=== PATIENT | male | born 1955 | race Caucasian/White ===

== ENCOUNTER 2018-08-22 23:35 | Emergency (ER) | payer OTHER, SELFPAY ==
[2018-08-22 23:38] VITALS: PULSE 82; RESP 20; TEMP 36.5; O2SAT 96
--- NOTE | 2018-08-23 00:03 | W.ED.GENAD ---
Discharge Plan Disposition Patient Disposition: HOME Condition: Good Discharge Details Chief Complaint: Laceration Clinical Impression: Laceration of left thumb Primary Care Provider: Charlie Jorgensen ED Provider: Maxx Tony [place] Meds and New Rx's Prescriptions: New cephalexin 500 mg capsule 500 mg PO QID Qty: 12 RF: 0 Discharge Instructions Instructions: Laceration (ED) Additional Instructions: Leave the dressing and the aluminum splint in place until seen by orthopedics on Saturday. Use acetaminophen and ibuprofen for pain. Keep hand elevated. Take antibiotic as prescribed. Return to ED for worsening pain, swelling, redness, fever. Referrals: Asad Morris MD [ [facility] STAFF PHYSICIAN] - Medical Decision Making Patient with extensive laceration of the distal thumb. Not a true amputation or partial amputation. Tendon appears to be intact. Sensation is decreased distal but is not absent. Tetanus is up-to-date. He is given Keflex. X-ray of the left thumb will be obtained. Digital block was performed prior to x-ray. Will soak the wound and irrigate out before closing. X-ray shows that the distal phalanx is crushed with multiple fractures. The base of the distal phalanx in the IP joint is intact. Case discussed with Dr. Morris on-call for orthopedics. He recommends against removing the nail and suggests closing the skin only. He will see the patient on Saturday and follow-up. Digital block worked well. Patient soaked the wound for some time after x-ray. It was then irrigated with copious amounts of saline. Skin laceration was closed with 4-0 nylon sutures. Cuticle was well approximated. Nail was left in place. Nailbed was not repaired. Xeroform dressing applied. Aluminum splint applied for protection. Patient instructed to keep hand elevated. He is not to remove the splint or dressing. He may use ibuprofen or acetaminophen for pain. Antibiotic as directed. Follow-up with Dr. Morris on Saturday. Return to ED for fever, increasing pain, swelling, redness. HPI General Mode of arrival: ambulatory. Date/Time Provider Initiated Documentation: 08/22/18 23:48. Limitations to Documentation: no limitations. Information obtained by: patient. HPI Narrative: Patient presents to ED with left thumb injury/laceration. Patient was filling his boiler with wood. He went to throw the wood in and slipped and jammed his thumb against a boiler plate. Sustained injury to his left thumb. When he took his glove off he noticed a large laceration and bleeding. He has some tingling to the tip of the thumb beyond the injury. He comes in for evaluation. Tetanus is up-to-date. Related Data Home Medications Medication Instructions Recorded Confirmed cephalexin 500 mg PO QID #12 cap 08/23/18 Previous Rx's Medication Instructions Recorded cephalexin 500 mg PO QID #12 cap 08/23/18 Allergies Allergy/AdvReac Type Severity Reaction Status Date / Time No Known Allergies Allergy Unverified 08/22/18 23:43 General Stated Complaint: Laceration JAVIER: 3 Review of Systems Musculoskeletal Reports tingling and Reports other (Left thumb injury) Integumentary/Breasts Reports wounds Neurologic Reports tingling PFSH Kidney stones (Chronic) Total knee replacement status (Inactive) Medical History Kidney stones (Chronic) Social History Smoking/Tobacco Use Status: Never Surgical History Total knee replacement status (Inactive) Social History Smoking/Tobacco Use Status: Never Exam Const General: cooperative, comfortable and no acute distress Orientation: alert and oriented x3 Skin Trauma: laceration (Left thumb involving the nailbed extending down towards the IP joint but not past it. Approximately 1.5 cm.) Neuro General: alert, oriented x3 and no focal motor deficits Extrem Left upper extremity: hand Details: laceration and other (Extensor tendons intact. Flexor tendon appears to be intact with the thumb though he has pain trying to flex against resistance. Decreased sensation distal to the laceration with some duskiness of the skin.) Course Vital Signs Temperature 97.7 F 08/22/18 23:38 Pulse 82 08/22/18 23:38 Respiratory Rate 20 08/22/18 23:38 Pulse Oximetry 96 08/22/18 23:38 Temperature 97.7 F 08/22/18 23:38 Temperature Source Temporal Artery Scan 08/22/18 23:38 Pulse 82 08/22/18 23:38 Respiratory Rate 20 08/22/18 23:38 Respiratory Effort Non-Labored 08/22/18 23:38 Blood Pressure Position Sitting 08/22/18 23:38 Pulse Oximetry 96 08/22/18 23:38 Oxygen Delivery Method Room Air 08/22/18 23:38 Oxygen Flow Rate 0 08/22/18 23:38 Procedures Laceration Laceration 1: Site: hand (thumb) Side (If applicable): left Size (cm): 1.5 Description: linear Depth: simple, single layer Pre-repair: irrigated extensively Skin layer closed with: nylon Size (cm): 4-0 Number of sutures: 6 Technique: simple, interrupted Nerve Block Nerve Block 1: Time out performed: Yes Local Anesthetic: Bupivicaine 0.5% Amount of anesthesia used (mL): 4 Side: left Nerve Blocks: digital Procedure Successful: Yes Patient Tolerated Procedure: well Complications: none
--- NOTE | 2018-08-23 00:10 | DI.RAD_ITS ---
SYMPTOM/DIAGNOSIS: TRAUMA LEFT THUMB: There is a comminuted fracture of the distal phalanx of the thumb which does not extend to the articular surface. There is no dislocation or evidence of foreign body. IMPRESSION: Open comminuted tuft fracture.
--- NOTE | 2018-08-23 00:14 | ED.GENADUL_ITS ---
Discharge Plan Disposition Patient Disposition: HOME Condition: Good Discharge Details Chief Complaint: Laceration Clinical Impression: Laceration of left thumb Primary Care Provider: Charlie Jorgensen ED Provider: Maxx Tony [place] Meds and New Rx's Prescriptions: New cephalexin 500 mg capsule 500 mg PO QID Qty: 12 RF: 0 Discharge Instructions Instructions: Laceration (ED) Additional Instructions: Leave the dressing and the aluminum splint in place until seen by orthopedics on Saturday. Use acetaminophen and ibuprofen for pain. Keep hand elevated. Take antibiotic as prescribed. Return to ED for worsening pain, swelling, redness, fever. Referrals: Asad Morris MD [ [facility] STAFF PHYSICIAN] - Medical Decision Making Patient with extensive laceration of the distal thumb. Not a true amputation or partial amputation. Tendon appears to be intact. Sensation is decreased distal but is not absent. Tetanus is up-to-date. He is given Keflex. X-ray of the left thumb will be obtained. Digital block was performed prior to x- ray. Will soak the wound and irrigate out before closing. X-ray shows that the distal phalanx is crushed with multiple fractures. The base of the distal phalanx in the IP joint is intact. Case discussed with Dr. Morris on-call for orthopedics. He recommends against removing the nail and suggests closing the skin only. He will see the patient on Saturday and follow- up. Digital block worked well. Patient soaked the wound for some time after x-ray. It was then irrigated with copious amounts of saline. Skin laceration was closed with 4-0 nylon sutures. Cuticle was well approximated. Nail was left in place. Nailbed was not repaired. Xeroform dressing applied. Aluminum splint applied for protection. Patient instructed to keep hand elevated. He is not to remove the splint or dressing. He may use ibuprofen or acetaminophen for pain. Antibiotic as directed. Follow-up with Dr. Morris on Saturday. Return to ED for fever, increasing pain, swelling, redness. HPI General Mode of arrival: ambulatory . Date/Time Provider Initiated Documentation: 08/22/18 23:48 . Limitations to Documentation: no limitations . Information obtained by: patient . HPI Narrative: Patient presents to ED with left thumb injury/laceration. Patient was filling his boiler with wood. He went to throw the wood in and slipped and jammed his thumb against a boiler plate. Sustained injury to his left thumb. When he took his glove off he noticed a large laceration and bleeding. He has some tingling to the tip of the thumb beyond the injury. He comes in for evaluation. Tetanus is up-to-date. Related Data Home Medications Medication Instructions Recorded Confirmed cephalexin 500 mg PO QID #12 cap 08/23/18 Previous Rx's Medication Instructions Recorded cephalexin 500 mg PO QID #12 cap 08/23/18 Allergies Allergy/AdvReac Type Severity Reaction Status Date / Time No Known Allergies Allergy Unverified 08/22/18 23:43 General Stated Complaint: Laceration JAVIER: 3 Review of Systems Musculoskeletal Reports tingling and Reports other (Left thumb injury) Integumentary/Breasts Reports wounds Neurologic Reports tingling PFSH Kidney stones (Chronic) Total knee replacement status (Inactive) Medical History Kidney stones (Chronic) Social History Smoking/Tobacco Use Status: Never Surgical History Total knee replacement status (Inactive) Social History Smoking/Tobacco Use Status: Never Exam Const General: cooperative, comfortable and no acute distress Orientation: alert and oriented x3 Skin Trauma: laceration (Left thumb involving the nailbed extending down towards the IP joint but not past it. Approximately 1.5 cm.) Neuro General: alert, oriented x3 and no focal motor deficits Extrem Left upper extremity: hand Details: laceration and other (Extensor tendons intact. Flexor tendon appears to be intact with the thumb though he has pain trying to flex against resistance. Decreased sensation distal to the laceration with some duskiness of the skin.) Course Vital Signs Temperature 97.7 F 08/22/18 23:38 Pulse 82 08/22/18 23:38 Respiratory Rate 20 08/22/18 23:38 Pulse Oximetry 96 08/22/18 23:38 Temperature 97.7 F 08/22/18 23:38 Temperature Source Temporal Artery Scan 08/22/18 23:38 Pulse 82 08/22/18 23:38 Respiratory Rate 20 08/22/18 23:38 Respiratory Effort Non-Labored 08/22/18 23:38 Blood Pressure Position Sitting 08/22/18 23:38 Pulse Oximetry 96 08/22/18 23:38 Oxygen Delivery Method Room Air 08/22/18 23:38 Oxygen Flow Rate 0 08/22/18 23:38 Procedures Laceration Laceration 1: Site: hand (thumb) Side (If applicable): left Size (cm): 1.5 Description: linear Depth: simple, single layer Pre-repair: irrigated extensively Skin layer closed with: nylon Size (cm): 4-0 Number of sutures: 6 Technique: simple, interrupted Nerve Block Nerve Block 1: Time out performed: Yes Local Anesthetic: Bupivicaine 0.5% Amount of anesthesia used (mL): 4 Side: left Nerve Blocks: digital Procedure Successful: Yes Patient Tolerated Procedure: well Complications: none
[2018-08-23] MEDS: Bupivacaine 0.5% Pres-Free 30 ML VIAL (00:45)
[2018-08-23] MEDS: Cephalexin 500 MG CAP PO ×2 (00:46→02:16)
--- NOTE | 2018-08-23 00:47 | DI.VRAD_ITS ---
EXAM: XR Left Finger(s), 2 or More Views EXAM DATE/TIME: 08/23/2018 12:11 AM CLINICAL HISTORY: 62 years old, male; Injury or trauma; Injury history: Patient fell and hit his thumb on the door hinge of an outdoor wood furnace; Initial encounter; Fracture, traumatic injury; Open fracture, severity classification not provided; Finger; Left; Injury date: 08/22/18 TECHNIQUE: XR Left finger minimum 2 views. COMPARISON: No relevant prior studies available. FINDINGS: Bones/joints: Interphalangeal and to a lesser degree metacarpophalangeal degenerative changes throughout the hand. Acute, comminuted open fracture of the first distal phalanx without significant displacement. Soft tissues: Distal first distal soft tissue defect. First digital and thenar swelling. No radiopaque foreign body is seen. IMPRESSION: Acute, comminuted open fracture of the first distal phalanx without significant displacement. Dictated and Authenticated by: Zuleyma Armas MD. Ordering:DONOVAN ADAMS MD
[2018-08-23 02:17] VITALS: BP 161/99; PULSE 82; RESP 20; TEMP 36.5; O2SAT 96
== END 2018-08-23 02:20 | disposition home or self-care (01) ==
LOC: ER 08-23 02:28
PROVIDERS: Emergency Provider Emergency Medicine; PCP Internal Medicine
DX: S67.02XA Crushing injury of left thumb, initial encounter (principal); S61.112A Laceration without foreign body of left thumb with damage to nail, initial encounter; S62.522A Displaced fracture of distal phalanx of left thumb, initial encounter for closed fracture; R20.1 Hypoesthesia of skin; W23.1XXA Caught, crushed, jammed, or pinched between stationary objects, initial encounter
CPT/HCPCS: 12001; 29125; 99283; 73140; 99281

== ENCOUNTER 2019-03-11 11:57 | Outpatient (REF) | payer OTHER, SELFPAY ==
[2019-03-13 11:09] LABS: Lyme Ab w Rflx to Lyme Confirm Negative
[2019-03-14 01:11] LABS: Anaplasma phagocytophilum Negative (Negative); B. miyamotoi PCR Negative (Negative); Babesia divergens/MO-1 Negative (Negative); Babesia duncani Negative (Negative); Babesia microti Negative (Negative); Ehrlichia chaffeensis Negative (Negative); Ehrlichia ewingii/canis Negative (Negative); Ehrlichia muris eauclairensis Negative (Negative)
== END 2019-03-11 12:17 ==
LOC: NCHCN 11:57
PROVIDERS: PCP Internal Medicine; Visit Provider Nurse Practitioner Family
DX: M25.50 Pain in unspecified joint (principal)
CPT/HCPCS: 87798; 86618

== ENCOUNTER 2020-06-14 10:11 | Outpatient (REF) | payer BC, SELFPAY ==
[2020-06-14 20:53] LABS: Abs Immature Grans 0.02 10^3/uL (0.0-0.06); Absolute Basophil Count 0.05 10^3/uL (0.0-0.2); Absolute Eosinophil Count 0.07 10^3/uL (0.0-0.7); Absolute Lymphocyte Count 1.91 10^3/uL (1.2-3.4); Absolute Monocyte Count 0.44 10^3/uL (0.1-0.8); Basophils % 0.9; Eosinophils % 1.2; HCT 47.2 % (40.0-50.0); HGB 15.2 g/dL (13.5-17.5); Immature Grans % 0.3; MCH 28.4 pg (27.0-33.0); MCHC 32.2 % (32.0-36.0); MCV 88.1 fL (80-95); MPV 11.5 fL (8.0-11.0); Monocytes % 7.6; Nucleated RBC 0 %; Platelet Count 296 10^3/uL (130-400); RBC 5.36 10^6/uL (4.36-5.78); RDW 13.7 % (11.8-14.1); RDW-SD 43.9 fL; WBC 5.79 10^3/uL (4.4-10.8)
[2020-06-14 21:14] LABS: ALT 57 U/L (16-63); AST 19 U/L (15-37); Alkaline Phosphatase 102 U/L (46-116); Anion Gap 6.5 mmol/L (3-11); BUN 14 mg/dL (7-18); Bilirubin, Total 1.2 mg/dL (0.2-1.0); CO2 29.5 mmol/L (21.0-32.0); CREATININE 0.87 mg/dL (0.70-1.30); Calcium 8.8 mg/dL (8.5-10.1); Chloride 106 mmol/L (98-107); Glucose 107 mg/dL (74-106); Potassium 3.9 mmol/L (3.5-5.1); Sodium 142 mmol/L (136-145); Total Protein 7.2 g/dL (6.4-8.2)
[2020-06-15 17:58] LABS: PSA, Screening 3.1 ng/mL (0.0-4.5)
== END 2020-06-14 10:31 ==
LOC: NCHCN 10:11
PROVIDERS: PCP Internal Medicine; Visit Provider Internal Medicine
DX: R39.9 Unspecified symptoms and signs involving the genitourinary system (principal); Z12.5 Encounter for screening for malignant neoplasm of prostate; Z80.42 Family history of malignant neoplasm of prostate
CPT/HCPCS: 80053; 84153; 85025

== ENCOUNTER 2021-06-25 17:02 | Emergency (ER) | payer BC, SELFPAY ==
[2021-06-25] VITALS (37 sets, daily range): BP systolic 139–153; BP diastolic 84–135; PULSE 50–78; RESP 14–27; TEMP 37.3; O2SAT 94–98
--- NOTE | 2021-06-25 19:45 | DI.RAD_ITS ---
Exam(s) XR CHEST 2V PA LATERAL EXAM: XR CHEST 2V PA LATERAL CLINICAL HISTORY: L jaw pain TECHNIQUE: 2D digital imaging was performed. COMPARISON: CR CHEST 2 VIEWS PA,LAT from 03/28/2012 FINDINGS: The heart is not enlarged. The lungs are clear and well expanded. No pleural effusion seen. Mediastin al contours appear intact. IMPRESSION: Normal chest. RADIATION DOSE DELIVERED: Total DLP
--- NOTE | 2021-06-25 19:45 | RT.EKG_ITS ---
APPROVED REPORT Exam: Resting ECG Reason for Exam: L jaw pain Patient Location: E HR:59 bpm ECG Measurements Heart Rate 59 AXIS AZ 170 P 16 QRSd 108 QRS 10 QT 404 T 0 QTc 401 Conclusion Sinus bradycardia...rate< 60 PHysician: no stemi. inverted V1 and Lead III and AVF
--- NOTE | 2021-06-25 19:52 | ED.GENADUL_ITS ---
Discharge Plan Disposition Patient Disposition: HOME Condition: Stable Discharge Details Clinical Impression: Jaw pain Primary Care Provider: Charlie Jorgensen ED Provider: Ricardo Connolly Home Meds and New Rx's Prescriptions: No Action No Known Home Meds RF: 0 Discharge Instructions Additional Instructions: You have been observed in the ER for a cardiac rule out for over 6 hours and has been asymptomatic the entire time. Laboratory values are unremarkable for any obvious emergent process. Is unclear exactly where your symptoms are coming from, as we discussed this could be an atypical chest pain equivalent, neurologic in nature, dental, etc. I strongly recommend that you watch for new or worsening symptoms and return immediately to the ER. Otherwise I would like you to contact your primary care provider tomorrow to discuss your symptoms, ER visit, need for outpatient follow-up for further investigation of your symptoms. Continue taking [id number] medications as directed for symptomatic control. Medical Decision Making This is a 65-year-old gentleman, no significant past medical history, presenting to the ER for intermittent left-sided jaw pain that began yesterday, was fairly consistent overnight, and intermittent 4 times today. Patient took Tylenol p.m. prior to arrival it is asymptomatic. Denies any headache, visual changes, pain down his neck, chest pain, shortness of breath, etc. While this very well could be dental in nature, infectious process, TMJ, neuralgia or neuritis, less likely arteritis, ophthalmologic in nature, my concern is that this could be a atypical chest pain presentation. I did speak with the patient's on the phone and she shares the same concerns. Patient is agreeable to a chest pain work-up. Will initiate chest pain work-up and give full dose aspirin Initial labs are unremarkable for obvious emergent process. Patient remains asymptomatic. He is agreeable to awaiting a delta troponin. Delta troponin is unremarkable. Patient observed in the ER for over 6 hours and has remained asymptomatic the entire time. We did discuss the importance of return to the ER for new or worsening symptoms, otherwise contacting his primary care provider tomorrow to discuss outpatient reevaluation. He very well may develop new symptoms which may help figure out the etiology of his discomfort but he may need further work-up such as stress test, echocardiogram, referral to neurology, dentist, ophthalmology, etc. Patient is agreeable to this plan and has no additional questions or concerns. Strict discharge and return precautions provided This documentation was generated using [employer]iv[employer] system, please disregard any oddities of phrase or misspellings. Medical Records Medical records reviewed: Yes I reviewed the patient's medical records. Imaging Data Radiologic Study: Attestation: I personally reviewed and interpreted this imaging study as follows: Imaging: X-Ray Radiologist's impression: PROCEDURE INFORMATION: Exam: XR Chest Exam date and time: 06/25/2021 7:51 PM Age: 65 years old Clinical indication: Other: L jaw pain TECHNIQUE: Imaging protocol: XR of the chest. Views: 2 views. COMPARISON: CT PELVIC/LOWER ABD WITHOUT CONT 06/28/2014 8:25 AM FINDINGS: Lungs: Unremarkable. No consolidation. Pleural spaces: Unremarkable. No pleural effusion. No pneumothorax. Heart/Mediastinum: Unremarkable. No cardiomegaly. Bones/joints: Degenerative changes noted in the spine and shoulders. IMPRESSION: No acute cardiopulmonary abnormality. Lab Data Lab results reviewed: Yes I reviewed the patient's lab results. Labs: Laboratory Tests Range/Units 06/25/21 06/25/21 06/25/21 20:06 20:06 20:08 WBC (4.4-10.8) 10^3/uL 6.21 RBC (4.36-5.78) 10^6/uL 5.03 Hgb (13.5-17.5) g/dL 13.8 Hct (40.0-50.0) % 43.1 MCV (80-95) fL 85.7 MCH (27.0-33.0) pg 27.4 MCHC (32.0-36.0) % 32.0 RDW (11.8-14.1) % 13.4 Plt Count (130-400) 10^3/uL 282 MPV (8.0-11.0) fL 10.6 Immature Gran % 0.3 Neutrophils % 52.2 Lymphocytes % 37.2 Monocytes % 8.2 Eosinophils % 1.3 Basophils % 0.8 Nucleated RBC % % 0 Absolute Neutrophils (1.2-6.7) 10^3/uL 3.24 Absolute Lymphocytes (1.2-3.4) 10^3/uL 2.31 Absolute Monocytes (0.1-0.8) 10^3/uL 0.51 Absolute Eosinophils (0.0-0.7) 10^3/uL 0.08 Absolute Basophils (0.0-0.2) 10^3/uL 0.05 Sodium (136-145) mmol/L 141 Potassium (3.5-5.1) mmol/L 3.9 Chloride (98-107) mmol/L 105 Carbon Dioxide (21.0-32.0) mmol/L 27.4 Anion Gap (3-11) mmol/L 8.6 BUN (7-18) mg/dL 17 Creatinine (0.70-1.30) mg/dL 0.7 Estimated GFR/1.73 m2 (mL/min/1.73m2) >= 60.00 Glucose (74-106) mg/dL 100 Calcium (8.5-10.1) mg/dL 9.0 Magnesium (1.8-2.4) mg/dL 2.1 Total Bilirubin (0.2-1.0) mg/dL 0.7 AST (15-37) U/L 20 ALT (16-63) U/L 48 Alkaline Phosphatase (46-116) U/L 97 Troponin I (<0.06) ng/mL < 0.05 Total Protein (6.4-8.2) g/dL 7.1 Albumin (3.4-5.0) g/dL 3.9 COVID-19 Source Nasal/Nares Range/Units 06/25/21 22:38 WBC (4.4-10.8) 10^3/uL RBC (4.36-5.78) 10^6/uL Hgb (13.5-17.5) g/dL Hct (40.0-50.0) % MCV (80-95) fL MCH (27.0-33.0) pg MCHC (32.0-36.0) % RDW (11.8-14.1) % Plt Count (130-400) 10^3/uL MPV (8.0-11.0) fL Immature Gran % Neutrophils % Lymphocytes % Monocytes % Eosinophils % Basophils % Nucleated RBC % % Absolute Neutrophils (1.2-6.7) 10^3/uL Absolute Lymphocytes (1.2-3.4) 10^3/uL Absolute Monocytes (0.1-0.8) 10^3/uL Absolute Eosinophils (0.0-0.7) 10^3/uL Absolute Basophils (0.0-0.2) 10^3/uL Sodium (136-145) mmol/L Potassium (3.5-5.1) mmol/L Chloride (98-107) mmol/L Carbon Dioxide (21.0-32.0) mmol/L Anion Gap (3-11) mmol/L BUN (7-18) mg/dL Creatinine (0.70-1.30) mg/dL Estimated GFR/1.73 m2 (mL/min/1.73m2) Glucose (74-106) mg/dL Calcium (8.5-10.1) mg/dL Magnesium (1.8-2.4) mg/dL Total Bilirubin (0.2-1.0) mg/dL AST (15-37) U/L ALT (16-63) U/L Alkaline Phosphatase (46-116) U/L Troponin I (<0.06) ng/mL < 0.05 Total Protein (6.4-8.2) g/dL Albumin (3.4-5.0) g/dL COVID-19 Source ECG Data Attestation: I personally reviewed and interpreted this ECG (s) as follows: Interpretation: Please see official report by Dr. Lee. Sinus bradycardia, ventricular rate of 59. No STEMI. Nonspecific T wave changes HPI General Mode of arrival: ambulatory . Date/Time Provider Initiated Documentation: 06/25/21 17:17 . Limitations to Documentation: no limitations . Information obtained by: patient . HPI Narrative: This is a 65-year-old gentleman, denies significant past medical history, presents to the ER this evening reporting left-sided jaw pain that came on suddenly yesterday evening, sharp in nature and intermittent. States then overnight it was more constant, sharp, his entire job but did radiate towards his nose, did not sleep well. Today it has been intermittent roughly 4 times, took [id number] Tylenol PM and has been asymptomatic ever since. Denies any other symptoms, recent illness or trauma. Denies headache, visual changes, neck pain, sore throat, dental pain, chest pain, shortness of breath, back abdominal pain, nausea, vomiting, numbness, tingling, weakness, change in bowel or bladder function. Patient states that she bites down very hard he may be able to reproduce his symptoms slightly. Related Data Home Medications Medication Instructions Recorded Confirmed Unknown [No Known Home Meds] 06/16/20 Allergies Allergy/AdvReac Type Severity Reaction Status Date / Time No Known Allergies Allergy Unverified 06/25/21 17:13 General Stated Complaint: DentalOral JAVIER: 4 Review of Systems Constitutional Constitutional: Denies fatigue, Denies fever(s), Denies headache(s) and Denies weakness Eyes Eyes: Denies change in vision and Denies eye pain ENT Ears, Nose, Mouth, and Throat: Denies headache(s) and Denies sore throat Cardiovascular Cardiovascular: Denies chest pain and Denies dyspnea Respiratory Respiratory: Denies cough and Denies dyspnea Gastrointestinal Gastrointestinal: Denies abdominal pain, Denies nausea and Denies vomiting Musculoskeletal Musculoskeletal: Denies back pain, Denies numbness and Denies tingling Integumentary/Breasts Skin/Breast: Denies rash Neurologic Neurologic: Denies headache(s), Denies numbness, Denies tingling and Denies weakness Endocrine Endocrine: Denies fatigue PFSH Medical History Kidney stones Surgical History Total knee replacement status Social History Smoking/Tobacco Use Status: Never Smoking risk assessment performed?: Yes Alcohol Intake: never Drug use: Never Do you feel safe at home: Yes Do you feel safe in your relationship?: Yes Exam Const General: cooperative, healthy appearing, comfortable and no acute distress Orientation: alert, awake and oriented x3 HENMT Head: normal to inspection, normocephalic and atraumatic Ears: external ears normal, TM's normal bilaterally and EAC's normal General nose exam: external nose normal Face and sinus: normal facial exam Mouth: oral mucosae normal and moist mucous membranes Teeth and gingiva: dentition normal Throat: posterior oropharynx normal Eyes General: appearance normal, both eyes and all related structures Alignment and Position: alignment normal Periorbital: periorbital findings normal Eyelids: eyelids normal Conjunctivae: conjunctivae normal Sclera: sclerae normal Cornea: corneas normal Pupils: PERRL EOM: EOM intact bilaterally Direct ophthalmoscopy: normal light reflex Neck Neck: normal visual inspection, full ROM, no meningeal signs, trachea midline, supple and nontender Resp Effort & Inspection: normal respiratory effort and able to speak in complete sentences Auscultation: clear to auscultation bilaterally Cardio Rate: regular rate Rhythm: regular rhythm GI Palpation: soft, not firm, no guarding, no pulsatile masses and nontender Back/Spine/Pelvis Back: No back tenderness Skin General skin exam: no rashes or lesions noted Neuro General: patient alert, patient awake, patient oriented x3, moves all extremities and no focal motor deficits Cranial Nerves: CN's II-XI intact bilaterally Cognition: normal cognition Speech: speech normal Motor: muscle tone normal throughout Sensory Exam: no sensory deficits noted Extrem General: normal to inspection, full ROM and capillary refill normal Psych Appearance: grossly normal Mental Status: mental status grossly normal Course Vital Signs Vital signs: Vital Signs Temperature 37.3 C 06/25/21 17:10 Pulse 78 06/25/21 17:10 Respiratory Rate 18 06/25/21 17:10 Blood Pressure 148/102 H 06/25/21 17:10 Pulse Oximetry 96 06/25/21 17:10 Temperature 37.3 C 06/25/21 17:10 Pulse 78 06/25/21 17:10 Respiratory Rate 18 06/25/21 17:10 Blood Pressure 148/102 H 06/25/21 17:10 Blood Pressure Position Sitting 06/25/21 17:10 Pulse Oximetry 96 06/25/21 17:10 Oxygen Delivery Method Room Air 06/25/21 17:10 Oxygen Flow Rate 0 06/25/21 17:10 Pain Level 9 06/25/21 17:10
[2021-06-25 20:14] LABS: Source Nasal/Nares
[2021-06-25 20:15] LABS: Abs Immature Grans 0.02 10^3/uL (0.0-0.06); Absolute Basophil Count 0.05 10^3/uL (0.0-0.2); Absolute Eosinophil Count 0.08 10^3/uL (0.0-0.7); Absolute Lymphocyte Count 2.31 10^3/uL (1.2-3.4); Absolute Monocyte Count 0.51 10^3/uL (0.1-0.8); Absolute Neutrophil Count 3.24 10^3/uL (1.2-6.7); Basophils % 0.8; Eosinophils % 1.3; HCT 43.1 % (40.0-50.0); HGB 13.8 g/dL (13.5-17.5); Immature Grans % 0.3; Lymphocytes % 37.2; MCH 27.4 pg (27.0-33.0); MCV 85.7 fL (80-95); MPV 10.6 fL (8.0-11.0); Monocytes % 8.2; Neutrophils % 52.2; Nucleated RBC 0 %; Platelet Count 282 10^3/uL (130-400); RBC 5.03 10^6/uL (4.36-5.78); RDW 13.4 % (11.8-14.1); WBC 6.21 10^3/uL (4.4-10.8)
[2021-06-25] MEDS: Aspirin 81 MG CHEW 324 MG CH (20:25)
[2021-06-25 20:28] LABS: ALT 48 U/L (16-63); AST 20 U/L (15-37); Albumin 3.9 g/dL (3.4-5.0); Alkaline Phosphatase 97 U/L (46-116); Anion Gap 8.6 mmol/L (3-11); BUN 17 mg/dL (7-18); Bilirubin, Total 0.7 mg/dL (0.2-1.0); CO2 27.4 mmol/L (21.0-32.0); CREATININE 0.7 mg/dL (0.70-1.30); Chloride 105 mmol/L (98-107); Glucose 100 mg/dL (74-106); Magnesium 2.1 mg/dL (1.8-2.4); Potassium 3.9 mmol/L (3.5-5.1); Sodium 141 mmol/L (136-145); Total Protein 7.1 g/dL (6.4-8.2)
[2021-06-25 20:30] LABS: Troponin I < 0.05 ng/mL (<0.06)
--- NOTE | 2021-06-25 22:31 | DI.VRAD_ITS ---
PROCEDURE INFORMATION: Exam: XR Chest Exam date and time: 06/25/2021 7:51 PM Age: 65 years old Clinical indication: Other: L jaw pain TECHNIQUE: Imaging protocol: XR of the chest. Views: 2 views. COMPARISON: CT PELVIC/LOWER ABD WITHOUT CONT 06/28/2014 8:25 AM FINDINGS: Lungs: Unremarkable. No consolidation. Pleural spaces: Unremarkable. No pleural effusion. No pneumothorax. Heart/Mediastinum: Unremarkable. No cardiomegaly. Bones/joints: Degenerative changes noted in the spine and shoulders. IMPRESSION: No acute cardiopulmonary abnormality. Dictated and Authenticated by: Billy Silva MD. Ordering:AYLEEN Silva MD
[2021-06-25 22:59] LABS: Troponin I < 0.05 ng/mL (<0.06)
[2021-06-25 23:59] LABS: COVID-19 PCR Negative (Negative)
== END 2021-06-25 23:22 | disposition home or self-care (01) ==
PROVIDERS: Emergency Provider Physician Assistant; PCP Internal Medicine
DX: R68.84 Jaw pain (principal); R00.1 Bradycardia, unspecified; Z20.822 Contact with and (suspected) exposure to COVID-19; Z03.818 Encounter for observation for suspected exposure to other biological agents ruled out
CPT/HCPCS: 36415; 80053; 87635; 93005; 99285; 71046; 83735; 84484; 85025; 93010

== ENCOUNTER 2021-12-21 02:11 | Outpatient (CLI) | payer BC, SELFPAY ==
[2021-12-21 18:59] LABS: PSA, Screening 3.7 ng/mL (<=4.5)
== END 2021-12-21 02:12 | disposition home or self-care (01) ==
LOC: LBO 02:11
PROVIDERS: PCP Internal Medicine; Visit Provider Nurse Practitioner Gerontology
DX: Z12.5 Encounter for screening for malignant neoplasm of prostate (principal); Z80.42 Family history of malignant neoplasm of prostate
CPT/HCPCS: 36415; 84153

== ENCOUNTER → 2023-01-23 08:06 | Outpatient (BNVA) | payer MEDICARE, BC, SELFPAY | PROVIDERS: PCP Internal Medicine; Visit Provider Nurse Practitioner Gerontology | DX: N40.1 Benign prostatic hyperplasia with lower urinary tract symptoms (principal); N13.8 Other obstructive and reflux uropathy; Z80.42 Family history of malignant neoplasm of prostate | CPT/HCPCS: 36415; 51798; 99214 ==

== ENCOUNTER 2023-01-23 09:07 | Outpatient (REF) | payer MEDICARE, BC, SELFPAY | END 2023-01-23 09:08 | disposition home or self-care (01) | LOC: LBN 09:07 | PROVIDERS: PCP Internal Medicine; Visit Provider Nurse Practitioner Gerontology | DX: Z12.5 Encounter for screening for malignant neoplasm of prostate (principal); Z80.42 Family history of malignant neoplasm of prostate; N40.1 Benign prostatic hyperplasia with lower urinary tract symptoms | CPT/HCPCS: 84153 ==

== ENCOUNTER 2023-05-29 20:24 | Outpatient (REF) | payer BC, SELFPAY ==
[2023-05-29 16:18] LABS: ALT 32 U/L (16-63); AST 14 U/L (15-37); Albumin 3.6 g/dL (3.4-5.0); Alkaline Phosphatase 92 U/L (46-116); Anion Gap 4.8 mmol/L (3-11); BUN 17 mg/dL (7-18); Bilirubin, Total 0.7 mg/dL (0.2-1.0); CO2 29.2 mmol/L (21.0-32.0); CREATININE 0.9 mg/dL (0.70-1.30); Calcium 9.6 mg/dL (8.5-10.1); Chloride 106 mmol/L (98-107); Estimated GFR 94.19 (mL/min/1.73m2); Glucose 103 mg/dL (74-106); Potassium 4.2 mmol/L (3.5-5.1); Sodium 140 mmol/L (136-145); Total Protein 6.9 g/dL (6.4-8.2); Uric Acid 4.9 mg/dL (3.5-7.2)
[2023-05-29 16:20] LABS: Abs Immature Grans 0.02 10^3/uL (0.0-0.06); Absolute Basophil Count 0.05 10^3/uL (0.0-0.2); Absolute Lymphocyte Count 1.84 10^3/uL (1.2-3.4); Absolute Monocyte Count 0.54 10^3/uL (0.1-0.8); Absolute Neutrophil Count 3.97 10^3/uL (1.2-6.7); Basophils % 0.8; Eosinophils % 1.5; HGB 13.4 g/dL (13.5-17.5); Immature Grans % 0.3; Lymphocytes % 28.2; MCHC 32.7 % (32.0-36.0); MCV 86 fL (80-95); MPV 11.2 fL (8.0-11.0); Monocytes % 8.3; Neutrophils % 60.9; Platelet Count 331 10^3/uL (130-400); RBC 4.79 10^6/uL (4.36-5.78); RDW 13.7 % (11.8-14.1); RDW-SD 43.1 fL; WBC 6.52 10^3/uL (4.4-10.8)
[2023-05-29 16:30] LABS: Bilirubin Negative (Negative); Blood Trace-lysed (Negative); Clarity Clear (Clear); Glucose Negative (Negative); Ketones Negative (Negative); Leukocyte Esterase Trace (Negative); Nitrite Negative (Negative); Urobilinogen 0.2 mg/dL (Up to 0.2)
[2023-05-29 17:20] LABS: Bacteria Rare HPF (Negative); C & S Indicated? Yes; Casts Negative LPF (Negative); Crystals Negative HPF (Negative); Epithelial Cells Rare HPF (Negative); Mucus Trace (Negative)
[2023-05-29 23:02] LABS: PSA, Screening 4.2 ng/mL (<=4.5)
== END 2023-05-29 20:25 | disposition home or self-care (01) ==
LOC: NCHCN 20:24
PROVIDERS: PCP Internal Medicine; Visit Provider Family Medicine
DX: R10.32 Left lower quadrant pain (principal); N20.0 Calculus of kidney; Z12.5 Encounter for screening for malignant neoplasm of prostate; Z80.42 Family history of malignant neoplasm of prostate; R82.998 Other abnormal findings in urine
CPT/HCPCS: 80053; 84153; 81003; 81015; 84550; 85025; 87086

== ENCOUNTER → 2023-05-31 00:51 | Outpatient (CLI) | payer BC, SELFPAY ==
--- NOTE | 2023-05-31 10:35 | DI.CT_ITS ---
Exam(s) CT ABDOMEN PELVIS WO EXAM: CT ABDOMEN PELVIS WO CLINICAL HISTORY: LEFT FLANK PAIN R10.9 NEPHROLITHIASIS N20.0. TECHNIQUE: Imaging Protocol: Axial computed tomography images with coronal and sagittal reformatted images were created and reviewed. COMPARISON: CT RENAL COLIC WO CONTRAST from 05/21/2014 CT PELVIC/LOWER ABD WITHOUT CONT from 06/28/2014 FINDINGS: Lack of IV contrast limits evaluation of the abdominal organs. ABDOMEN: Lung Bases: Normal where visualized. Liver: There is fatty infiltration of the liver. There is a 4.1 x 4.2 cm mass in the left lobe of th e liver. Gallbladder and biliary tract: No radiodense calculus or biliary ductal dilation. Pancreas: There is a question of 1 cm hypodense lesion in the uncinate process of the pancreas. Spleen: Normal. Kidneys: Normal size, contour and axis.There is left nephrolithiasis. There is a 0.6 cm stone at the junction of the middle and distal thirds of the left ureter. There is a 0.6 cm stone at the left UV J. There is moderate hydronephrosis. No masses seen. Adrenal glands: No mass is seen. Lymph nodes: Within normal limits. Abdominal Aorta: Abdominal portion non-dilated. Atherosclerosis. PELVIS: Bladder:Symmetric distention, no gross wall thickening. Bowel: Diverticulosis is present. There is no evidence of bowel obstruction or bowel wall thickening . Appendix is unremarkable. Peritoneal cavity: No ascites, collection or mesenteric inflammatory response. No free air. Reproductive organs: There is an enlarged prostate gland. Bones: Within normal limits. Soft Tissues: There are bilateral fat containing inguinal hernias. There is a fat containing umbilic al hernia. IMPRESSION: 1. Two stones in the distal left ureter causing moderate hydronephrosis. 2. Left nephrolithiasis. 3. 4.1 x 4.2 cm mass in the left lobe of the liver. 4. Question of a 1 cm hypodense lesion in the uncinate process of the pancreas. 5. MRI of the abdomen without and with contrast is recommended for evaluation of the liver and pancre atic lesions. Unexpected findings RADIATION DOSE DELIVERED: 874.07mGy.cm Total DLP DATA REPOSITORY: All CT scans at this facility are submitted to the National Radiology Data Registry (NRDR) Dose Index Registry (DIR) with the [employer] (ACR). RADIATION OPTIMIZATION: All CT scans at this facility use at least one of these dose optimization te chniques: automated exposure control; mA and/or kV adjustment per patient size (includes targeted exa ms where dose is matched to clinical indication); or iterative reconstruction.
== END ==
PROVIDERS: PCP Internal Medicine; Visit Provider Family Medicine
DX: N13.30 Unspecified hydronephrosis (principal); N20.0 Calculus of kidney; K76.89 Other specified diseases of liver; K86.9 Disease of pancreas, unspecified
CPT/HCPCS: 74176

== ENCOUNTER → 2023-06-03 14:45 | Outpatient (BNVA) | payer BC, SELFPAY | PROVIDERS: PCP Internal Medicine; Referring Provider Internal Medicine; Visit Provider Nurse Practitioner Gerontology | CPT/HCPCS: 99213 ==

== ENCOUNTER 2023-06-06 10:07 | Emergency (ER) | payer BC, SELFPAY ==
[2023-06-06 10:11] VITALS: BP 165/99; PULSE 66; RESP 20; TEMP 37.1; O2SAT 99
[2023-06-06] MEDS: oxyCODONE 5 MG TAB PO (10:26)
[2023-06-06] MEDS: Acetaminophen 500 MG TAB 1000 MG PO (10:26)
[2023-06-06] MEDS: Ketorolac 30 MG/ML VIAL 15 MG IM (10:27)
--- NOTE | 2023-06-06 10:32 | W.ED.GENAD ---
Discharge Plan Disposition Patient Disposition: Home Condition: Good Discharge Details Clinical Impression: Ureteral stone Primary Care Provider: Juan Sneed ED Provider: Zara Beasley Home Meds and New Rx's Prescriptions: New oxycodone 5 mg capsule 5 mg PO Q8H PRNQty: 5 0RF No Action tamsulosin [Flomax] 0.4 mg capsule 0.4 mg PO DAILY Qty: 14 0RF Discharge Instructions Instructions: Kidney Stones (ED) Additional Instructions: Take tylenol and ibuprofen over the counter- follow the directions on the bottle. Continue your Flomax. You can take 5mg of oxycodone as needed for severe pain that does not improve after over the counter medications- follow the directions on the bottle. Followup with your urologist as scheduled. Return to the emergency department for new or worsening symptoms including fever, abdominal pain, or uncontrolled pain. Referrals: [facility] [Provider Group] Medical Decision Making 67yo previously health male with recent diagnosis of kidney stones presenting with worsening left flank pain. History from patient and [facility] record review; reviewed urology clinic note 06/03/23. Two 6mm stones on left with moderate hydronephrosis, 50% chance of passage, taking flomax. No systemic symptoms or indication of infection. No difficulty passing urine. Vital signs and physical exam reassuring. Not septic. Low suspicion for septic stone; UA reviewed and negative for infection. Would not repeat imaging or get labs at this time. Will treat pain with tylenol/IM toradol/PO oxycodone. On reassessment patient reports pain improved and is tolerable. Advised tylenol and ibuprofen at home; will prescribe short course of oxycodone for breakthrough pain. Continuing flomax. Discharged home; discharge instructions including return precautions were reviewed with patient who verbalized understanding. All questions were answered and they are in full agreement with the plan. Lab Data Lab results reviewed: Yes I reviewed the patient's lab results. HPI General Mode of arrival: ambulatory. Date/Time Provider Initiated Documentation: 06/06/23 10:18. Limitations to Documentation: no limitations. Information obtained by: patient. HPI Narrative: 67yo previously health male with recent diagnosis of kidney stones presenting with worsening left flank pain. Seen by urology on Saturday and found to have 2 6mm stones on left with moderate hydronephrosis. Prescribed flomax and plan to monitor for passage of stone. This morning at 0400 began to have worsening left sided flank pain radiating down his side consistent with his prior pain but worse. Has not taken anything at home this morning for this. No dysuria or morgan hematuria. [place] and vomiting when pain is bad. Otherwise systemically well with no fevers, chills, rash, inability to void, lethargy, malaise, or other concerns. Related Data Home Medications Medication Instructions Recorded Confirmed tamsulosin 0.4 mg capsule (Flomax) 0.4 mg PO DAILY #14 caps 06/03/23 06/03/23 oxycodone 5 mg capsule 5 mg PO Q8H PRN #5 caps 06/06/23 Previous Rx's Medication Instructions Recorded tamsulosin 0.4 mg capsule (Flomax) 0.4 mg PO DAILY #14 caps 06/03/23 oxycodone 5 mg capsule 5 mg PO Q8H PRN #5 caps 06/06/23 Allergies Allergy/AdvReac Type Severity Reaction Status Date / Time No Known Allergies Allergy Unverified 06/06/23 10:18 General Stated Complaint: FlankPain JAVIER: 3 Review of Systems Narrative: see HPI PFSH All Active Problems (Updated 06/06/23 @ 10:54 by Zara Beasley MD) BPH w urinary obs/LUTS (Acute) Jaw pain (Acute) Family history of prostate cancer (Acute) Left hydrocele (Acute 08/21/16) Spermatocele (Acute 08/30/15) Ureteral stone (Acute 08/30/15) Medical History (Updated 06/06/23 @ 10:54 by Zara Beasley MD) Kidney stones Surgical History Total knee replacement status Social History Smoking/Tobacco Use Status: Never Smoking risk assessment performed?: Yes Alcohol Intake: never Drug use: Never Do you feel safe at home: Yes Do you feel safe in your relationship?: Yes Exam Narrative Exam Narrative: General: Alert, well appearing, well nourished, in no acute distress. Head: Normocephalic, atraumatic Neck: Trachea midline, Neck supple. Cardiac: RRR, no murmurs appreciated Resp: No respiratory distress. CTAB. Abd: Soft, non-distended, nontender : No suprapubic tenderness. No CVA tenderness. Extremities: No deformities. No peripheral edema. Neurologic: GCS 15. Moves all extremities freely against gravity Course Vital Signs Vital signs: Vital Signs Temperature 37.1 C 06/06/23 10:11 Pulse 66 06/06/23 10:11 Respiratory Rate 20 06/06/23 10:11 Blood Pressure 165/99 H 06/06/23 10:11 Pulse Oximetry 99 06/06/23 10:11 Temperature 37.1 C 06/06/23 10:11 Temperature Source Oral 06/06/23 10:11 Pulse 66 06/06/23 10:11 Respiratory Rate 20 06/06/23 10:11 Respiratory Effort Normal 06/06/23 10:23 Blood Pressure 165/99 H 06/06/23 10:11 Blood Pressure Position Sitting 06/06/23 10:11 Pulse Oximetry 99 06/06/23 10:11 Oxygen Delivery Method Room Air 06/06/23 10:11 Oxygen Flow Rate 0 06/06/23 10:11 Pain Level 7 06/06/23 10:11
[2023-06-06 10:44] LABS: Bilirubin Negative (Negative); Blood Large (Negative); Clarity Sl Cloudy (Clear); Glucose Negative (Negative); Ketones Negative (Negative); Leukocyte Esterase Negative (Negative); Nitrite Negative (Negative); Specific Gravity 1.025 (1.005-1.025); Urobilinogen 0.2 mg/dL (Up to 0.2)
[2023-06-06 10:55] LABS: Bacteria Negative HPF (Negative); C & S Indicated? No; Casts 0-2 Hyaline LPF (Negative); Crystals Negative HPF (Negative); Epithelial Cells Rare HPF (Negative); Mucus Negative (Negative); RBC >50 HPF (0-2); WBC 0-2 HPF (0-5)
[2023-06-06 11:05] VITALS: BP 142/92; PULSE 84; RESP 14; O2SAT 98
== END 2023-06-06 11:06 | disposition home or self-care (01) ==
PROVIDERS: Emergency Provider Student in an Organized Health Care Education/Training Program; PCP Family Medicine
DX: N13.2 Hydronephrosis with renal and ureteral calculous obstruction (principal)
CPT/HCPCS: 96372; 99283; 81003; 81015; J1885

== ENCOUNTER → 2023-06-26 00:28 | Outpatient (CLI) | payer BC, SELFPAY ==
--- NOTE | 2023-06-26 | DI.MRI_ITS ---
Exam(s) MR ABDOMEN WO/W EXAM: MR ABDOMEN WO/W CLINICAL HISTORY: PANCREATIC LESION K86.9 TECHNIQUE: Multiplanar multisequence MRI of the Abdomen was performed. CONTRAST MATERIAL: IV Contrast: 18 mL of Dotarem contrast administered. COMPARISON: CT RENAL COLIC WO CONTRAST from 05/21/[address] ABDOMEN PELVIS WO from 05/31/2023 FINDINGS: Liver: 5 centimeter maximal dimension high T2 signal lesion in the anteroinferior left lobe of the li val. Peripheral puddling post IV contrast. Centripetal filling. Findings consistent with a large h emangioma. Pancreas: Unremarkable. No evidence of mass or cyst. No ductal dilatation. Gallbladder and Bile Ducts: Unremarkable. Adrenals: Unremarkable. Kidneys: Unremarkable. Left hydronephrosis no longer present. No perinephric collection. Spleen: Unremarkable. Aorta: Unremarkable. Soft Tissues: Small fatty containing umbilical hernia. Bone: degenerative changes in the spine. Lymph Nodes: Unremarkable. Bowel: Diverticulosis. No wall thickening. No abnormal small bowel or gastric distension. IMPRESSION: 5 centimeter liver lesion is consistent with a hemangioma. No evidence of pancreatic mass. DATA REPOSITORY:
[2023-06-26] MEDS: Gadoterate meglumine 20 ML VIAL IVP (10:08)
[2023-06-26] MEDS: Normal Saline - Diluent 50 ML VIAL IJ (10:08)
== END ==
PROVIDERS: PCP Family Medicine; Visit Provider Family Medicine
DX: D18.03 Hemangioma of intra-abdominal structures (principal)
CPT/HCPCS: 74183

== ENCOUNTER 2024-02-27 12:23 | Outpatient (REF) | payer BC, SELFPAY ==
[2024-02-27 15:36] LABS: ALT 45 U/L (16-63); AST 18 U/L (15-37); Albumin 3.8 g/dL (3.4-5.0); Alkaline Phosphatase 99 U/L (46-116); Anion Gap 7.3 mmol/L (3-11); BUN 15 mg/dL (7-18); Bilirubin, Total 1.3 mg/dL (0.2-1.0); CO2 30.7 mmol/L (21.0-32.0); CREATININE 0.7 mg/dL (0.70-1.30); Calculated LDL 121 mg/dL (<100); Chloride 105 mmol/L (98-107); Cholesterol 181 mg/dL (<200); Estimated GFR 100.99 (mL/min/1.73m2); Glucose 104 mg/dL (74-106); HDL Cholesterol 46 mg/dL (40-60); Potassium 4.5 mmol/L (3.5-5.1); Sodium 143 mmol/L (136-145); Total Protein 6.9 g/dL (6.4-8.2); Triglyceride 71 mg/dL (<150)
== END 2024-02-27 12:24 | disposition home or self-care (01) ==
LOC: NCHCN 12:23
PROVIDERS: PCP Family Medicine; Visit Provider Family Medicine
DX: Z00.00 Encounter for general adult medical examination without abnormal findings (principal); R03.0 Elevated blood-pressure reading, without diagnosis of hypertension; Z13.220 Encounter for screening for lipoid disorders
CPT/HCPCS: 80053; 80061

== ENCOUNTER 2024-03-02 20:34 | Outpatient (REF) | payer BC, SELFPAY ==
[2024-03-03 18:53] LABS: PSA, Diagnostic 4.6 ng/mL (<=4.5)
== END 2024-03-02 20:35 | disposition home or self-care (01) ==
LOC: NCHCN 20:34
PROVIDERS: Visit Provider Family Medicine
DX: R97.20 Elevated prostate specific antigen [PSA] (principal); Z80.42 Family history of malignant neoplasm of prostate
CPT/HCPCS: 84153

== ENCOUNTER 2024-06-04 01:42 | Outpatient (CLI) | payer BC, SELFPAY ==
--- NOTE | 2024-06-04 08:43 | DI.RAD_ITS ---
Exam(s) XR HIP PELVIS ADULT BL EXAM: XR HIP PELVIS ADULT BL CLINICAL HISTORY: PAIN IN HIP M25.559. TECHNIQUE: 2D digital imaging was performed. COMPARISON: CT CT ABDOMEN PELVIS WO from 05/31/2023 FINDINGS: 3 views No evidence of pelvic nor hip fractures. However, there is [id number] narrowing of the bilateral h ip joints at the superior aspects as well as subarticular degenerative cysts and marginal osteophytes . No significant osseous lesions. IMPRESSION: Advanced osteoarthritic degenerative changes of both hips. DATA REPOSITORY: RADIATION DOSE DELIVERED:
== END 2024-06-04 02:02 ==
LOC: DI 01:42
PROVIDERS: PCP Family Medicine; Visit Provider Family Medicine
DX: M16.0 Bilateral primary osteoarthritis of hip (principal)
CPT/HCPCS: 73521

== ENCOUNTER → 2024-08-17 09:56 | Outpatient (BNVA) | payer MEDICARE, SELFPAY | PROVIDERS: PCP Family Medicine; Referring Provider Family Medicine; Visit Provider Student in an Organized Health Care Education/Training Program | DX: M16.11 Unilateral primary osteoarthritis, right hip (principal); M16.12 Unilateral primary osteoarthritis, left hip | CPT/HCPCS: 99214 ==

== ENCOUNTER 2024-09-15 14:17 | Outpatient (CLI) | payer MEDICARE, SELFPAY ==
[2024-09-15 12:16] LABS: Kit/Specimen SENT
== END 2024-09-15 14:18 | disposition home or self-care (01) ==
LOC: LBO 14:18
PROVIDERS: PCP Family Medicine; Visit Provider Naturopath
DX: E63.9 Nutritional deficiency, unspecified (principal)
CPT/HCPCS: 36415

== ENCOUNTER → 2024-12-15 09:54 | Outpatient (BNVA) | payer MEDICARE, SELFPAY | PROVIDERS: PCP Family Medicine; Referring Provider Family Medicine; Visit Provider Student in an Organized Health Care Education/Training Program | DX: K40.20 Bilateral inguinal hernia, without obstruction or gangrene, not specified as recurrent (principal) | CPT/HCPCS: 99214 ==

== ENCOUNTER 2024-12-30 18:00 | Observation (INO) | payer MEDICARE, SELFPAY ==
--- NOTE | 2024-12-29 21:32 | W.ANESPRE ---
General Info Date of Service Date Performed: 12/30/24 Height: 5 ft 9 in Weight: 84.538 kg Body Mass Index (BMI): 27.5 Surgical Procedure: Operation Date: 12/30/24 12:25 Proposed Procedure Side Surgeon p Hernia Inguinal Laparoscopic w/Mesh, Rt possible LT Right Atif Vogel MD Meds Allergies and Home Medications Allergies Allergy/AdvReac Type Severity Reaction Status Date / Time Milk Containing Products Allergy Nausea Verified 12/30/24 13:01 (Dairy) Home Medication ?Medication ?Instructions ?Recorded cholecalciferol (vitamin D3) 125 125 mcg PO DAILY 12/21/24 mcg (5,000 unit) capsule collagen joint complex 1 tab PO TID 12/21/24 lumbrokinase PO 12/21/24 magnesium 100 mg tablet 100 mg PO BID 12/21/24 multiphase detox 2 tab PO DIRECTED 12/21/24 naltrexone 1.5 mg capsule (Naltrex) 1.5 mg PO HS 12/21/24 nystatin 500,000 unit tablet 1,000,000 unit PO BID 12/21/24 omega 4-bii-gsq-fish oil 300 1 cap PO DAILY 12/21/24 mg-1,000 mg capsule (Fish Oil) Current Visit Medications: Current Medications Generic Name Dose Route Start Last Admin Trade Name Freq PRN Reason Stop Dose Admin Heparin Sodium (Porcine) 5,000 units 12/30/24 06:00 Heparin 5,000 Units/Ml Vial SC 12/30/24 23:59 PREOP [facility] Ringer's Solution 1,000 mls @ 80 mls/hr 12/30/24 06:00 IV 12/30/24 23:59 INFUSION [facility] IV Miscellaneous Supplies 1 each 12/30/24 06:00 Iv Access IV 12/30/24 23:59 DIRECTED ANT Sodium Chloride 0 ml 12/30/24 06:00 Normal Saline Flush 10 Ml Syr IV 12/30/24 23:59 PRN PRN Sodium Chloride 0 ml 12/30/24 06:00 Normal Saline 10 Ml Vial IJ 12/30/24 23:59 DIRECTED PRN Sterile Water 0 ml 12/30/24 06:00 Water,Injection,Sterile 10 Ml Vial IJ 12/30/24 23:59 DIRECTED PRN PFSH Active Problems Active Problems: Problem Status Onset Code Bilateral inguinal hernia (BIH) Acute K40.20 Osteoarthritis of hips, bilateral Acute M16.0 BPH w urinary obs/LUTS Acute N40.1, N13.8 Jaw pain Acute R68.84 Family history of prostate cancer Acute Z80.42 Left hydrocele Acute 08/21/16 N43.3 Spermatocele Acute 08/30/15 N43.40 Ureteral stone Acute 08/30/15 N20.1 Medical History Medical History Lyme disease Melanoma in situ Trigeminal neuralgia Kidney stones Surgical History Surgical History History of colonoscopy (~2011) polyps Total knee replacement status Per pt. denies-states he crushed my knee but they patched it up Tobacco Smoking/Tobacco Use Status: Never Passive smoking exposure: No Alcohol Alcohol Intake: never Substance Use Substance use: Never Substance use type: does not use Vital Signs and Lab Results Lab Results Blood Type / Crossmatch: No Data to Display Complete Blood Count: No Data to Display Complete Metabolic Panel: No Data to Display Liver Function Panel: No Data to Display Coagulation Panel: No Data to Display Cardiac Panel: No Data to Display Arterial Blood Gas: No Data to Display Venous Blood Gas: No Data to Display Pancreas Panel: No Data to Display Thyroid Panel: No Data to Display Infectious Disease: No Data to Display Blood Cultures: No Data to Display Toxicology Panel: No Data to Display Anesthesia Assessment and Plan Anesthesia History Personal History: No History of Anesthesia Complications Family History: No Family History of Anesthesia Complications Exercise Tolerance Exercise Tolerance: Metabolic Equivalents>4 Pertinent Negatives Pertinent Negatives: No Symptoms of GERD, No Major Cardiovascular Symptoms or Complaints, No Major Pulmonary Symptoms or Complaints and No History of CVA/TIA Cardiac & Pulmonary Exam Cardiac Exam: Normal S1/S2 Heart Sounds Pulmonary Exam: Clear Bilateral Breath Sounds Implantable Cardiac Device Does patient have a Pacemaker or an ICD?: No Airway Exam Known Difficult Airway: No Mallampati Class: 2 Mouth Opening: Normal (> 3cm) Thyromental Distance: Greater than 3 cm Neck Range of Motion: Limited ROM Neck Circumference: Normal Teeth Condition: Normal Dentition ASA Classification ASA Score: ASA 2 Emergency Case?: No NPO Status NPO Status: NPO Clears >2 hours, Solids >8 hours Anesthesia Plan Resuscitation Status: Full Code Anesthesia Technique: General Anesthesia Airway Planned: Endotracheal Tube Pain Management: Surgeon and patient request nerve block Monitors Used: Standard Monitors Preoperative Comments:: 69 yo male for hernia repair. Sig PMHx: BPH, Lyme (naltrexone?), never smoker, ECG: Sinus
[2024-12-30] VITALS (7 sets, daily range): BP systolic 130–147; BP diastolic 70–98; PULSE 55–64; RESP 14–20; TEMP 35.9–36.6; O2SAT 97–99; BMI 27.5
[2024-12-30] MEDS: Lactated Ringers 1,000 ML 80 ML IV ×2 (12:42→15:25)
[2024-12-30] MEDS: Heparin 5,000 UNITS/ML VIAL 5000 UNITS SC (12:50)
[2024-12-30] MEDS: Bupivacaine 0.25% Pres-Free 30 ML VIAL (15:55)
--- NOTE | 2024-12-30 16:01 | W.ANESNERVE ---
Nerve Block Single Injection Procedure Date and Time Date Performed: 12/30/24 Procedure Start: 15:16 Location Where Procedure Performed Procedure Location: Operating Room Procedure Stop: 15:24 Reason Performed: Postoperative Analgesia Requesting Provider: Atif Vogel Timeout Performed Timeout Performed: Yes Monitoring Used ECG, Blood Pressure, SpO2, ETCO2 and See EMR for corresponding vital signs Sterility Sterility: Hand Hygiene, Surgical Cap, Surgical Mask, Sterile Gloves, Sterile Drape/Sheet and Chlorhexidine Sedation Given During Procedure Sedation Given (Indicate Dose Given): No Sedation given Patient Mental Status Patient Mental Status: Performed under general anesthesia Nerve Block 1st Nerve Block: Laterality: Bilateral Block Type: TAP Bilateral Ultrasound Image Saved?: Yes Needle / Catheter Used: 100mm SonoPlex II Local Anesthetic Bolus (Indicate Dose Given): Lidocaine used for local infiltration of skin, Injected in 3-5ml increments after negative blood aspiration, Half of Total block solution given into each side, Bupivacaine 0.25% Dose:: 40 ml and Exparel Dose:: 20 ml Additives (Indicate Dose Given): None Ultrasound: Sterile probe cover and gel used Nerve Stimulator: Not Used Paresthesia: None Procedure Tolerated: No Complications and Patient tolerated well Procedure Outcome: Successful Performed By: Lynn Fink
--- NOTE | 2024-12-30 17:41 | ROE_ITS ---
Operative Note Operative Note Refer to Anesthesia Record Procedure Description: PROCEDURES PERFORMED: 1. Laparoscopic repair of primary reducible RIGHT inguinal hernia 2. Laparoscopic repair of primary incarcerated LEFT reducible inguinal hernia 3. Laparoscopic repair of primary incarcerated umbilical hernia (1cm) Preoperative Diagnosis: Reducible primary right inguinal hernia, possible left inguinal hernia Postoperative Diagnosis: Incarcerated LEFT indirect inguinal hernia, reducible RIGHT inguinal hernia, incarcerated umbilical hernia Surgeon: Kosta Vogel Assist: Servando Anesthesia: General Anesthesiologist: Shannon Indication: Tender but reducible RIGHT inguinal hernia. Asymptomatic bulge on his left. Findings: The right indirect hernia had no incarcerated contents but the left indirect space had a corner of sigmoid colon incarcerated in it. It was reduced quite easily with laparoscopic and pressure technique. The bilateral myopectineal orifice spaces (indirect, direct and femoral spaces on both sides) were repaired with posterior approach and mesh. The umbilicus defect is 1cm and had tightly incarcerated pre-peritoneal fat which was reduced and then repaired primarily. Complications: None Estimated Blood Loss: (5cc) Scant Specimens removed: None Grafts or implants: 3D lida large, MID mesh bilateral Procedure in detail: Written consent was obtained from the patient who was in agreement with the risks, the benefits and the indications for the procedure. The patient was taken to the operating suite and laid supine on the operating table with both arms tucked. IV antibiotics were not indicated and DVT prophylaxis had been given. Venodynes were in place. General anesthesia was administered which was tolerated very well. Anesthesia performed an ultrasound?guided block. See their procedure note for details. We then prepped and draped the abdomen in sterile fashion. A timeout was performed. When we were all in agreement we began the procedure. Additional local anesthetic was injected at each trocar site. Within the umbilicus a small stab incision was made and a 5 mm Optiview trocar was used to enter into the abdomen under direct visualization. The liver was inspected and did not appear cirrhotic. 2 other 5 mm port were placed under direct visualization and the umbilical port was upsized to a 12 mm to facilitate passing the mesh and sutures. The patient was placed in Trendelenburg and we had good visualization of the intra-abdominal contents, pelvis and the bilateral pelvic sidewalls. Hernia defects are visible on both sides. Incarcerated contents in the left indirect space. On the left I was able to laparoscopically reduce the incarcerated contents relatively easily and without undue stress. Hemostasis was excellent. In standard/usual fashion I created peritoneal flaps. I started on the right. A combination of blunt and sharp dissection was performed using the LigaSure. I was able to reduce the hernia sacs out bilateral. I developed each space all the way medial to beyond the pubic tubercle midline. Arthur's ligament was clearly exposed as well as all 3 potential defects of the myopectineal orifice. Hemostasis was excellent. Two 3D liad mesh were introduced in usual fashion and laid perfectly within the spaces I had created. The indirect, direct as well as the femoral spaces were all completely covered with significant and adequate overlay. I loosely sutured each mesh to Arthur's ligament with Vicryl and in the upper outer quadrant to the fascia with Vicryl to the mesh would not rotate or migrate. This was done on both sides. Next I closed both peritoneal flaps with the V-loc. I removed the needles. Hemostasis was excellent. I closed the umbilical hernia defect with 0 Vicryl after make fresh fascial edges, free of peritoneum. The 5 mm ports were remov ed. I closed the skin with Monocryl and put Dermabond on top. The sponge, instrument and sharps count was correct x3 at the end of the procedure. The patient tolerated the procedure well and was taken to the PACU in hemodynamically stable condition. Date of Procedure: 12/30/24
--- NOTE | 2024-12-30 17:42 | PDOC.DSDIS_ITS ---
Date of service: 12/30/24 Discharge Plan Disposition Patient Disposition: Home Condition: Good Discharge Details Attending Provider: Atif Vogel Primary Care Provider: Juan Sneed Home Meds and New Rx's Prescriptions: No Action collagen joint complex 1 tab PO TID magnesium 100 mg tablet 100 mg PO BID cholecalciferol (vitamin D3) 125 mcg (5,000 unit) capsule 125 mcg PO DAILY omega 6-cab-qny-fish oil [Fish Oil] 300-1,000 mg capsule 1 cap PO DAILY multiphase detox 2 tab PO DIRECTED Rx Instructions: 2 pills 30 minutes before breakfast and supper lumbrokinase PO Patient Comments: 1 pill am 30 min before breakfast, 1 30 min/supper Naltrex 1.5 mg capsule 1.5 mg PO HS nystatin 500,000 unit tablet 1,000,000 unit PO BID Rx Instructions: take two tablets by mouth with breakfast and dinner Discharge Instructions Additional Instructions: INSTRUCTIONS: Incisions: Keep clean and dry but they do not need to be covered. It is okay to shower but no tub bathing for 1 week. You can peel the glue off after 1 week. Activity: As tolerated. Light duty without any heavy lifting/pulling or pushing for 6-8 weeks. Use abdominal binder at all times when up and out of bed for 8 weeks. You don't need to wear it while sleeping. Diet: Regular diet as tolerated. Medications: Resume all of your usual/regular home medications. Follow-up: If you are having any issues or concerns call the surgery office immediately. If you want to have a routine follow-up that is perfectly fine and you can call and schedule an. If everything is otherwise going well, you do not need to follow-up. Pain control: Take Tylenol, 1000 mg, every 6 hours on a schedule for the next 3 days. You can use ibuprofen in addition to Tylenol if needed. Ice can be used as needed. Overall: Symptoms should not be worsening. If you have any difficulty breathing or you have return of symptoms of brought you to the hospital or your pain is otherwise worsening each day and you should call the doctor's office or come into the hospital to be checked out. Stand Alone Forms: Anesthesia Discharge InstOz Donnelly (U) Referrals: Atif Vogel MD [ [facility] STAFF PHYSICIAN] - 01/18/25 3:15 pm
--- NOTE | 2024-12-30 18:09 | W.ANESPOSTOP ---
Postoperative Evaluation Date, Time and Location Date Performed: 12/30/24 Time Performed: 18:02 Patient Location: PACU Vital Signs Most Recent Imported Vital Signs: Most Recent Vital Signs Temp Pulse Resp BP Pulse Ox 36.5 C 64 16 147/98 H 99 12/30/24 17:46 12/30/24 12:25 12/30/24 12:25 12/30/24 12:25 12/30/24 12:25 Pain Score Most Recent Pain Score: Most Recent Pain Score Pain Level 4 12/30/24 18:03 Assessment Mental Status: Awake (Alert & Oriented to Patient Baseline) Airway and Respiratory Function: Patent airway with normal (patient baseline) respiratory exam Cardiovascular Function: Hemodynamically Stable Hydration Status: Adequately Hydrated Nausea & Vomiting: No Nausea or Vomiting Pain: Pain is tolerable per patient Peripheral Nerve Block: Regional nerve block not resolved at time of post operative discharge
== END 2024-12-30 20:49 | disposition home or self-care (01) ==
LOC: MS 18:15
PROVIDERS: Admitting Provider Student in an Organized Health Care Education/Training Program; PCP Family Medicine; Visit Provider Student in an Organized Health Care Education/Training Program
PROC: (CPT 49650; principal; 2024-12-30 12:15)
DX: K40.30 Unilateral inguinal hernia, with obstruction, without gangrene, not specified as recurrent (principal); K40.90 Unilateral inguinal hernia, without obstruction or gangrene, not specified as recurrent; K42.0 Umbilical hernia with obstruction, without gangrene; G89.18 Other acute postprocedural pain; R10.30 Lower abdominal pain, unspecified
CPT/HCPCS: 49650; 49592; C1781; G0378; J0131; J0461; J0665; J0666; J1100; J1596; J1644; J1885; J2003; J2371; J2405; J2704

== ENCOUNTER → 2025-01-28 14:58 | Outpatient (BNVA) | payer MEDICARE, SELFPAY | PROVIDERS: PCP Family Medicine; Referring Provider Family Medicine; Visit Provider Student in an Organized Health Care Education/Training Program | DX: Z48.89 Encounter for other specified surgical aftercare (principal) | CPT/HCPCS: 99024 ==

== ENCOUNTER 2025-03-09 16:30 | Outpatient (REF) | payer MEDICARE, SELFPAY ==
[2025-03-09 17:20] LABS: BUN 14 mg/dL (7-18); CREATININE 0.9 mg/dL (0.70-1.30); Calcium 8.9 mg/dL (8.5-10.1); Chloride 106 mmol/L (98-107); Estimated GFR 93.03 (mL/min/1.73m2); Glucose 107 mg/dL (74-106); Potassium 4.4 mmol/L (3.5-5.1); Sodium 142 mmol/L (136-145)
[2025-03-10 09:26] LABS: PSA, Diagnostic 8.9 ng/mL (<=4.5)
== END 2025-03-09 16:31 | disposition home or self-care (01) ==
LOC: NCHCN 16:30
PROVIDERS: PCP Family Medicine; Visit Provider Family Medicine
DX: Z00.00 Encounter for general adult medical examination without abnormal findings (principal); Z12.5 Encounter for screening for malignant neoplasm of prostate
CPT/HCPCS: 80048; 84153

== ENCOUNTER 2025-04-19 14:11 | Outpatient (CLI) | payer MEDICARE, SELFPAY ==
--- NOTE | 2025-04-19 14:18 | DI.RAD_ITS ---
Exam(s) XR PELVIS AP EXAM: XR PELVIS AP CLINICAL HISTORY: bilateral hip DJD. TECHNIQUE: 2D digital imaging was performed. COMPARISON: CR XR HIP PELVIS ADULT BL from 06/04/2024 FINDINGS: Single AP view of the pelvis There are no pelvic nor hip fractures. Bone density is age-appropriate. There are danced osteoarthritic degenerative changes in both hips again noted, similar to previous of May 2024. There is [id number]-gl-[id number] narrowing of the superior aspect of both hip joints. There are degenerative subarticular cysts on both sides of the joint both within the femoral heads and acetabulums. There are also osteophytes at the femoral head levels. IMPRESSION: Advanced osteoarthritic degenerative changes again noted in both hips. DATA REPOSITORY: RADIATION DOSE DELIVERED:
== END 2025-04-19 14:12 | disposition home or self-care (01) ==
LOC: DIORS 14:11
PROVIDERS: PCP Family Medicine; Referring Provider Family Medicine; Visit Provider Physician Assistant
DX: Z01.818 Encounter for other preprocedural examination (principal); M16.0 Bilateral primary osteoarthritis of hip
CPT/HCPCS: 99024; 72170

== ENCOUNTER 2025-04-19 16:26 | Outpatient (REF) | payer MEDICARE, SELFPAY ==
[2025-04-19 16:31] LABS: HCT 42.6 % (40.0-50.0); HGB 13.9 g/dL (13.5-17.5); MCH 27.5 pg (27.0-33.0); MCHC 32.6 % (32.0-36.0); MCV 84 fL (80-95); MPV 11.9 fL (8.0-11.0); Platelet Count 298 10^3/uL (130-400); RBC 5.06 10^6/uL (4.36-5.78); RDW 14.6 % (11.8-14.1); RDW-SD 44.5 fL; WBC 6.92 10^3/uL (4.4-10.8)
[2025-04-19 17:00] LABS: Anion Gap 7.6 mmol/L (3-11); BUN 18 mg/dL (7-18); CO2 27.4 mmol/L (21.0-32.0); Calcium 9.1 mg/dL (8.5-10.1); Chloride 105 mmol/L (98-107); Estimated GFR 100.37 (mL/min/1.73m2); Glucose 112 mg/dL (74-106); Potassium 3.8 mmol/L (3.5-5.1); Sodium 140 mmol/L (136-145)
== END 2025-04-19 16:27 | disposition home or self-care (01) ==
LOC: LBN 16:26
PROVIDERS: PCP Family Medicine; Visit Provider Student in an Organized Health Care Education/Training Program
DX: M16.0 Bilateral primary osteoarthritis of hip (principal); Z01.818 Encounter for other preprocedural examination
CPT/HCPCS: 80048; 85027

== ENCOUNTER 2025-04-27 05:48 | Day surgery (SDC) | payer MEDICARE, SELFPAY ==
[2025-04-27] VITALS (34 sets, daily range): BP systolic 106–165; BP diastolic 60–104; PULSE 53–72; RESP 10–22; TEMP 36–36.7; O2SAT 92–99; BMI 29.2
[2025-04-27] MEDS: Acetaminophen 500 MG TAB 1000 MG PO (06:35)
[2025-04-27] MEDS: Celecoxib 200 MG CAP 400 MG PO (06:35)
--- NOTE | 2025-04-27 06:45 | DI.RAD_ITS ---
Exam(s) XR HIP LT IN OR EXAM: XR HIP LT IN OR CLINICAL HISTORY: Osteoarthritis of hips, bilateral. TECHNIQUE: 2D and realtime digital imaging was performed. COMPARISON: CR XR PELVIS AP from 04/19/2025 XA XR HIP RT IN OR from 04/27/2025 FINDINGS: Hard copy images show placement of a left hip prosthesis Please see procedure note for details. Fluoro time: 32.9seconds RADIATION DOSE DELIVERED: oanh Sofia=4.39 mGy
[2025-04-27] MEDS: Lactated Ringers 1,000 ML 80 ML IV (06:55)
--- NOTE | 2025-04-27 06:55 | ANES.PREOP_ITS ---
General Info Date of Service Date Performed: 04/27/25 Height: 5 ft 8 in Weight: 87.4 kg Body Mass Index (BMI): 29.2 Surgical Procedure: Operation Date: 04/27/25 08:00 Proposed Procedure Side Surgeon p Hip Total Hip Anterior Bilateral, ACTIS HIGH Bilateral Dex Brian MD Meds Allergies and Home Medications Allergies Allergy/AdvReac Type Severity Reaction Status Date / Time Milk Containing Products Allergy Nausea Verified 04/27/25 06:14 (Dairy) Home Medication ?Medication ?Instructions ?Recorded cholecalciferol (vitamin D3) 125 125 mcg PO DAILY 04/09 mcg (5,000 unit) capsule collagen joint complex 1 tab PO TID 12/21/24 lumbrokinase PO 12/21/24 magnesium 100 mg tablet 100 mg PO BID 12/21/24 multiphase detox 2 tab PO DIRECTED 5 naltrexone 1.5 mg capsule (Naltrex) 1.5 mg PO HS 12/21 omega 0-cqz-tdq-fish oil 300 1 cap PO DAILY 12/21/24 mg-1,000 mg capsule (Fish Oil) dandelion root 04/27/25 naproxen sodium 220 mg capsule 220 mg PO ONCE 04/27/25 (Aleve) Current Visit Medications: Current Medications Generic Name Dose Route Start Last Admin Trade Name Emmanuelq PRN Reason Stop Dose Admin Acetaminophen 1,000 mg 04/27/25 06:00 04/27/25 06:35 Acetaminophen 500 Mg Tab PO 04/27/25 23:59 1,000 mg PREOP ANT Administration Celecoxib 400 mg 04/27/25 06:00 04/27/25 06:35 Celecoxib 200 Mg Cap PO 04/27/25 23:59 400 mg PREOP ANT Administration Ringer's Solution 1,000 mls @ 80 mls/hr 04/27/25 06:00 IV 04/27/25 23:59 INFUSION ANT Cefazolin Sodium/Dextrose 2 gm in 50 mls @ 100 mls/hr 04/27/25 06:00 Ancef Duplex IVPB 04/27/25 23:59 PREOP ANT Tranexamic Acid/Sodium Chloride 1,000 mg in 100 mls @ 600 mls/hr 04/27/25 06:00 IVPB 04/27/25 23:59 PREOP ANT Tranexamic Acid/Sodium Chloride 1,000 mg in 100 mls @ 600 mls/hr 04/27/25 06:00 IVPB 04/27/25 23:59 DIRECTED [facility] IV Miscellaneous Supplies 1 each 04/27/25 06:00 Iv Access IV 04/27/25 23:59 DIRECTED ANT Sodium Chloride 0 ml 04/27/25 06:00 Normal Saline Flush 10 Ml Syr IV 04/27/25 23:59 PRN PRN Sodium Chloride 0 ml 04/27/25 06:00 Normal Saline 10 Ml Vial IJ 04/27/25 23:59 DIRECTED PRN Sterile Water 0 ml 04/27/25 06:00 Water,Injection,Sterile 10 Ml Vial IJ 04/27/25 23:59 DIRECTED PRN PFSH Active Problems Active Problems: Problem Status Onset Code Elevated PSA Acute R97.20 Bilateral inguinal hernia (BIH) Acute K40.20 Osteoarthritis of hips, bilateral Chronic M16.0 BPH w urinary obs/LUTS Acute N40.1, N13.8 Jaw pain Acute R68.84 Family history of prostate cancer Acute Z80.42 Left hydrocele Acute 08/21/16 N43.3 Spermatocele Acute 08/30/15 N43.40 Ureteral stone Acute 08/30/15 N20.1 Medical History Medical History Lyme disease Melanoma in situ Trigeminal neuralgia Kidney stones Surgical History Surgical History Hx of bilateral inguinal hernia repair (~12/2024) History of colonoscopy (~2011) polyps Total knee replacement status Per pt. denies-states he crushed my knee but they patched it up Tobacco Smoking/Tobacco Use Status: Never Passive smoking exposure: No Alcohol Alcohol Intake: never Substance Use Substance use: Never Substance use type: does not use Vital Signs and Lab Results Vital Signs Most Recent Vital Signs in EMR: Most Recent Vital Signs Temp Pulse Resp BP Pulse Ox 36.7 C 68 20 163/104 H 98 04/27/25 06:23 04/27/25 06:23 04/27/25 06:23 04/27/25 06:23 04/27/25 06:23 Lab Results Blood Type / Crossmatch: Antibody Screen Pending Today Complete Blood Count: WBC, (4.4-10.8) 6.92 10^3/uL 04/19/25, 13:05 RBC, (4.36-5.78) 5.06 10^6/uL 04/19/25, 13:05 Hgb, (13.5-17.5) 13.9 g/dL 04/19/25, 13:05 Hct, (40.0-50.0) 42.6 % 04/19/25, 13:05 Plt Count, (130-400) 298 10^3/uL 04/19/25, 13:05 Complete Metabolic Panel: Sodium, (136-145) 140 mmol/L 04/19/25, 13:05 Potassium, (3.5-5.1) 3.8 mmol/L 04/19/25, 13:05 Chloride, (98-107) 105 mmol/L 04/19/25, 13:05 Carbon Dioxide, (21.0-32.0) 27.4 mmol/L 04/19/25, 13 :05 BUN, (7-18) 18 mg/dL 04/19/25, 13:05 Creatinine, (0.70-1.30) 0.7 mg/dL 04/19/25, 13:05 Est GFR (CKD-EPI 2020), (mL/min/1.73m2) 100.37 04/19/25, 13:05 Calcium, (8.5-10.1) 9.1 mg/dL 04/19/25, 13:05 Glucose, (74-106) 112 mg/dL H 04/19/25, 13:05 Imaging and Studies Imaging and Studies Study information below may be from another EMR and interpreted by another provider. Please see original notes in EMR for more complete details. EKG Summary: 06/25/21 Conclusion Sinus bradycardia...rate< 60 Anesthesia Assessment and Plan Anesthesia History Personal History: No History of Anesthesia Complications Family History: No Family History of Anesthesia Complications Exercise Tolerance Exercise Tolerance: Metabolic Equivalents<4 (secondary to miles hip pain) Pertinent Negatives Pertinent Negatives: No Symptoms of GERD, No Major Cardiovascular Symptoms or Complaints and No Major Pulmonary Symptoms or Complaints Cardiac & Pulmonary Exam Cardiac Exam: Normal S1/S2 Heart Sounds Pulmonary Exam: Clear Bilateral Breath Sounds Implantable Cardiac Device Does patient have a Pacemaker or an ICD?: No Airway Exam Known Difficult Airway: No Mallampati Class: 2 Mouth Opening: Normal (> 3cm) Thyromental Distance: Greater than 3 cm Neck Range of Motion: Limited ROM Neck Circumference: Normal Teeth Condition: Normal Dentition ASA Classification ASA Score: ASA 2 Emergency Case?: No NPO Status NPO Status: NPO Clears >2 hours, Solids >8 hours Anesthesia Plan Resuscitation Status: Full Code Anesthesia Technique: Spinal Anesthesia Airway Planned: Natural Airway Monitors Used: Standard Monitors
--- NOTE | 2025-04-27 07:03 | PDOC.DSDIS_ITS ---
Date of service: 04/27/25 Discharge Plan Disposition Patient Disposition: Home Condition: Good Discharge Details Reason For Visit: Bilateral hip DJD Attending Provider: Dex Brian Primary Care Provider: Juan Sneed Home Meds and New Rx's Prescriptions: New celecoxib [Celebrex] 200 mg capsule 200 mg PO BID PRNQty: 60 0RF Rx Instructions: Take one tablet twice daily for pain and inflammation aspirin 81 mg tablet,delayed release (DR/EC) 81 mg PO BID 30 Days Qty: 60 0RF acetaminophen 500 mg tablet 1,000 mg PO Q8H PRN Qty: 90 0RF Rx Instructions: Take two tablets up to every 8 hours as needed for pain pantoprazole 40 mg tablet,delayed release (DR/EC) 40 mg PO DAILY Qty: 14 0RF Rx Instructions: Take one tablet once daily dexamethasone 4 mg tablet 4 mg PO DAILY Qty: 2 0RF Rx Instructions: Take one tablet once daily for two days docusate sodium [Colace] 100 mg capsule 100 mg PO BID Qty: 28 0RF oxycodone 5 mg tablet 5 mg PO Q6H PRNQty: 12 0RF Rx Instructions: Take one tablet up to every 6 hours as needed for severe postoperative pain Continued collagen joint complex 1 tab PO TID magnesium 100 mg tablet 100 mg PO BID cholecalciferol (vitamin D3) 125 mcg (5,000 unit) capsule 125 mcg PO DAILY omega 5-sev-mkd-fish oil [Fish Oil] 300-1,000 mg capsule 1 cap PO DAILY Patient Comments: mj out of supply-04/22 multiphase detox 2 tab PO DIRECTED Rx Instructions: 2 pills 30 minutes before breakfast and supper lumbrokinase PO Patient Comments: 1 pill am 30 min before breakfast, 1 30 min/supper Naltrex 1.5 mg capsule 1.5 mg PO HS dandelion root Discontinued naproxen sodium [Aleve] 220 mg capsule 220 mg PO ONCE Patient Comments: 2 tablets Discharge Instructions Additional Instructions: Total Hip Discharge Instructions Activity: The most important activity is to walk. You should try to take short walks a few times a day. You have no restrictions on movement or positioning, but do not try to force what you do. You will find some stiffness and weakness with hip flexion (lifting your knee). Do not try to strengthen this too early, continue to practice walking and stairs and this will come. - Outpatient physical therapy can be helpful to help return you to a normal gait and improve your flexibility and strength. This can start around 2 weeks. For some patients, it?s not necessary. Usually this is determined at the time of discharge or at the first post-operative visit. - You should wear the EMILY hose on both legs for 2 weeks. Dressing: Keep the surgical dressing in place for at least one week. After the first week it may be removed and replace with light gauze and tape or nothing. It may get wet after 3 days but avoid soaking the dressing. If it gets wet, just lightly pat dry. It is important to always keep some gauze between skin folds, especially when you are sitting. Spend some time with the wound exposed when you are lying flat as the incision does wrinkle onto itself. Medications: - You should take Tylenol and an anti-inflammatory Celebrex as your primary pain control medications. If the Celebrex is too expensive or not covered, please call the office for another alternative (Advil/Ibuprofen or Naproxen/Aleve). - You have been prescribed a stronger pain medication Oxycodone for breakthrough pain, take as needed as prescribed. - You have also been prescribed a stomach acid reduction agent Pantoprozole to help reduce stomach acid and reflux. - You have also been prescribed Decadron to help with post-operative nausea and pain. You will take this for two days starting tomorrow. - You will be taking Aspirin 81mg twice a day for DVT prevention unless instructed otherwise. - If you have constipation you should take Colace (which has been prescribed) or Miralax (which is available [id number]). It takes most people 3-4 days to have a bowel movement. Follow-up: 2 weeks If you have any acute concerns or questions, please do not hesitate to contact the office at [phone]. You may contact Dr. Brian with any questions after hours through the hospital at [phone] or on his cell phone at [phone]. Referrals: Dex Brian MD [ [facility] STAFF PHYSICIAN, Orthopaedic Surgical] Equipment/Supplies: Walker Activity:: Elevate Remove Dressings/Wound Care:: Do Not Remove Shower/Bathe:: Cover Diet:: As Tolerated Discharge Orders Discharge Orders: Discharge Order (Routine); Ordered 04/27/25 Ordered By: Daija Vinson
[2025-04-27] MEDS: ceFAZolin 2 GM/50 ML BAG IVPB (07:33)
--- NOTE | 2025-04-27 07:33 | ROE_ITS ---
Operative Note Operative Note PRE-OP DIAGNOSIS: Bilateral Hip Osteoarthritis POST-OP DIAGNOSIS: same PROCEDURE: Bilateral Anterior Total Hip Arthroplasty with Intraoperative Navigation SURGEON: Dex Brian MEDICAL RECORD SPECIALIST: Daija Vinson ANESTHESIA TYPE: Spinal Refer to Anesthesia Record ESTIMATED BLOOD LOSS: 300 PATHOLOGY: none sent COMPLICATIONS: None Patient was transported to: PACU Patient's condition: stable Implants: RIGHT: 1. Depuy [place]vue Acetabular Component, 54mm 2. Depuy Acetabular Liner, [id number] 3. Depuy Actis Standard Collared Femoral Stem, Size 6 4. Depuy Altrx Ceramic Femoral Head, Size 36+8.5mm LEFT: 1. Depuy [place] Acetabular Component, 54mm 2. Depuy Acetabular Liner, [id number] 3. Depuy Actis High Offset Collared Femoral Stem, Size 6 4. Depuy Altrx Ceramic Femoral Head, Size 36+1.5mm Indications: I have seen Patrick in clinic for symptoms of hip arthritis, confirmed with rad iographic findings. He has exhausted nonoperative methods and was having significant limitations in daily function and desired better function and less pain. I discussed the technical details of a hip replacement. I explained the risks of the procedure to include, but not limited to, bleeding, infection, pain, stiffness, fracture, damage to nerves and vessels, damage to muscles and tendons, loosening, instability, leg length inequality, need for repeat procedure, blood clot and cardiopulmonary demise. Despite these risks, Patrick elected to proceed. Findings: There was significant signs of arthritis throughout both hips with deformity of the right femoral head and large osteophytes throughout the acetabulum and femoral head?neck junction bilaterally. Procedure Description: Patrick was greeted in the preoperative holding area where the correct side was identified and marked. The consent was reviewed with the patient and signed. The history and physical was updated. All questions were answered. He was taken back to the operating room. A spinal anesthestic was then administered. The patient was placed into the supine position on the HANA table. Both feet were wrapped with Webrill cotton wrap along with Coban. RIGHT Side The feet were placed in specialized boots for the HANA table, well seated within the boot and secured. SCDs were applied. The patient was then slid down onto a peroneal post. A preoperative AP hip was obtained to serve as a reference for determining leg lengths. Prophylactic antibiotics in the form of Cefazolin were administered. 1g of Tranxemic Acid was given intravenously within 30 minutes of incision. The right leg was then prepped with Chloraprep and draped in a standard fashion. A second prep with Chloraprep was performed prior to placement of a shower-curtain type drape with Iodine impregnated skin pro tection. A timeout to confirm correct identity, side and site, procedure, allergies, anesthesia, and medical concerns was performed. An obliquely oriented incision was made starting lateral to the ASIS and running distal over the Tensor Fascia Nichole (TFL) muscle belly toward the fibular head, approximately 10cm. The skin and soft tissue was dissected sharply, through Garry?s fascia, and to the fascia of the TFL. With the fascia and superior border of the IT band identified, the fascia was incised with a new knife just above any perforators from the IT band. The TFL muscle belly had a significant amount of fatty replacement. This was confirmed to be the fibers of the muscles running from the medial side of the ASIS and a distal lateral direction. These muscle fibers were bluntly dissected away from the fascia and moved laterally. The fat between TFL and rectus was identified to ensure the dissection was not within the TFL. Blunt dissection created space between abductors and the capsule and retractor was placed over the lateral femoral neck. The fibers of the rectus femoris tendon were identified and these were freed from the anterior capsule. A second cobra retractor was placed around the medial femoral neck. The TFL was further retracted laterally to show the deep fascia. Careful dissection through this layer identified three main crossing vessels of the lateral femoral circumflex. These were cauterized in multiple locations and then cut without any noticeable bleeding. The TFL was further released bluntly from the deep fascia to expose anterior hip capsule and fat The Pravin orthopaedic retractor was then placed beneath the TFL and against sartorius and medial soft tissues to protect and retract the soft tissues. A T-capsulotomy was then performed starting at the superior lateral acetabulum and moving distally to the intertrochanteric ridge. These capsular flaps were tagged with a No. 1 Ethibond and elevated from within. The capsular flaps were released to the shoulder of the lateral neck and to the lesser trochanter to give excellent visualization of the proximal femur. A neck osteotomy was performed using an oscillating saw based on preoperative templates. This cut started in the shoulder and of the lateral neck and exited medially. The saw was at all times directed medially to avoid injury to the greater trochanter. Gentle traction was applied to the leg and the osteotomy opened. The femoral head was removed with a corkscrew, making sure to protect the TFL on its exit. This was measured on the back table to determing the s tarting reamer size. Portions of the rectus obscuring visualization were minimally elevated off the superior acetabulum. An anterior retractor was placed over the anterior wall between capsule and labrum and attached to the Gripper retraction system. A posterior retractor was placed similarly. This provided excellent visualization. The contents of the cotyloid fossa were removed with electrocautery and the labrum was removed with a knife. There was a notable floor osteophyte. There was significant chondromalacia of the superior acetabulum. Acetabular reaming began with a 49mm reamer. This first reaming was directed anterior to posterior and medial to get down to the true floor. This was inspected and reamed until the true floor was reached. The anterior retractor was then released and entry and exit was provided by traction on the capsular flaps. I then reamed sequentially up to a 54mm reamer where good fit was obtained. The larger reamers were oriented based on anatomical reference of the anterior and lateral [place] to ensure proper abduction and anteversion. Positioning and size was confirmed with the fluoroscopy. A 54mm Depuy [place]vue acetabular component was selected. The acetabulum was reamed around the periphery with the selected acetabular size to prevent a rim fit. The deep tissues were irrigated. The acetabular component was then impacted in a position of about 40-45 degrees of abduction and 15-20 degrees of anteversion, using the patient?s anatomy as the ultimate landmark. Fluoroscopy was used to confirm this. There was excellent healthcare insurance sales agent of the acetabular component and the inserting handle was removed. The acetabular liner, Depuy [id number] polyethylene liner, was inserted and lined up with the tines of the acetabular component. There was no soft tissue interposition. The liner was then impacted into position and confirmed to be well-seated. A portion of the snadra-articular cocktail was then injected around the acetabulum into the capsule and periosteum. This cocktail consisted of 123mg of Ropivacaine, 0.25mg of Epinephrine, 0.04mg of Clonidine, and 15mg of Ketorolac, diluted to 50cc. Traction was released from the femur. The leg was rotated to 120 degrees. Any remaining medial capsule was released until the lesser trochanter was easily palpable. A Conley retractor was placed medially. The lateral capsule was further released into the shoulder to allow access to the greater trochanter. A Conley retractor was placed over the greater trochanter which allowed the trochanter to flip in front of the capsule for excellent exposure. The leg was brought down into maximal extension and 20 degrees of adduction while ensuring there was no impingement on the acetabulum. Any remnant capsule within the trochanter was released. Piriformis and obturator externis were identified and protected. There was excellent access to the proximal femur. The lateral neck remnant was removed with a rongeur. A blunt canal probe was used to identify the canal and trajectory for later broaching. A box osteotome initiated the broach course. A small curved rasp and a curved curette were used to work laterally. Broaching then began with a starter Actis reaming broach. This was inserted manually around the trochanter and into the canal before mallet blows. The broach was seated to a few millimeters below the cut level based on the neck cut and the preoperative template. Sequential broaching was continued with the I3 Precisionse pneumatic broaching device until a tight fit was obtained with good rotational control of the femur. A trial high offset neck was inserted along with a +1.5 trial head. The leg was brought out of extension and adduction and then reduced with traction and internal rotation. The leg was stable anteriorly in a position of 30 degrees of extension and 90 degrees of external rotation. Fluoroscopy was used to ensure there was no fracture and the stem was seated well. Leg lengths were checked with an AP pelvis and pelvic reference points. KeyOwner navigation system was used to confirm appropriate positioning and leg length and offset. Given he had poor lateralization of the hip, large for osteophyte and shortening on 1 to increase the leg length by about 3 mm as well as decrease the total offset while maintaining or slightly increasing femoral offset. To do this, based on the intraoperative navigation, I went to a standard neck with a +8.5 mm. Once content with the desired offset and leg lengths, the leg was brought back into extension, external rotation and adduction. The periosteum and surrounding tissue was injected with remaining portion of the sandra-articular cocktail. The proximal femur was irrigated as well as the deep tissues. The Depuy Actis standard collared stem, size 6, was then manually inserted into the proximal femur making sure to control rotation. It was then malleted into position with light blows, giving breaks to allow bone expansion and decrease risk of fracture. The selected Depuy Altrx Ceramic Head, size 36+8.5mm, was then placed onto the clean and dry trunnion and secured with impaction onto the tapered fit. The leg was brought back out of extension and adduction and reduced with traction and internal rotation. Stability was confirmed with no shuck at 90 degrees of external rotation and 30 degrees of extension. No impingement t hrough range of motion arc. Final x-ray images were obtained with fluoroscopy to confirm adequate positioning and no intraoperative fracture. The deep tissues were thoroughly irrigated with Surgiphor betadine solution. The second dose of TXA 1g was administered intravenously.The capsule was then reapproximated with the previously placed Ethibond sutures. The TFL fascia was finally closed with a No. 2 Stratafix, barbed suture. Deep tissues were then reapproximated with 0 Vicryl and a running 2-0 Vicryl. The skin was closed with a running 4-0 Monocryl in a subcuticular fashion. This was reinforced with skin glue. A Mepilex silver dressing was applied. LEFT Side Keeping the back table sterile, the drapes were removed, light handles changed, and fluoroscopy switched rooms sides. Once again, a AP hip was obtained to serve as a reference for determining leg lengths. The left leg was then prepped with Chloraprep and draped in a standard fashion. A second prep with Chloraprep was performed prior to placement of a shower-curtain type drape with Iodine impregnated skin protection. A timeout was once again performed to ensure that there were no issues to proceed. An obliquely oriented incision was made starting lateral to the ASIS and running distal over the Tensor Fascia Nichole (TFL) muscle belly toward the fibular head, approximately 10cm. The skin and soft tissue was dissected sharply, through Garry?s fascia, and to the fascia of the TFL. With the fascia and superior border of the IT band identified, the fascia was incised with a new knife just above any perforators from the IT band. The TFL muscle belly was bluntly dissected away from the fascia and moved laterally. The fat between TFL and rectus was identified to ensure the dissection was not within the TFL. Blunt dissection created space between abductors and the capsule and retractor was placed over the lateral femoral neck. The fibers of the rectus femoris tendon were identified and these were freed from the anterior capsule. A second cobra retractor was placed around the medial femoral neck. The TFL was further retracted laterally to show the deep fascia. Careful dissection through this layer identified three main crossing vessels of the lateral femoral circumflex. These were cauterized in multiple locations and then cut without any noticeable bleeding. The TFL was further released bluntly from the deep fascia to expose anterior hip capsule and fat The Pravin orthopaedic retractor was then placed beneath the TFL and against sartorius and medial soft tissues to protect and retract the soft tissues. A T-capsulotomy was then performed starting at the superior lateral acetabulum and moving distally to the intertrochanteric ridge. These capsular flaps were tagged with a No. 1 Ethibond and elevated from within. The capsular flaps were released to the shoulder of the lateral neck and to the lesser trochanter to give excellent visualization of the proximal femur. A neck osteotomy was performed using an oscillating saw based on preoperative templates. This cut started in the shoulder and of the lateral neck and exited medially. The saw was at all times directed medially to avoid injury to the greater trochanter. Gentle traction was applied to the leg and the osteotomy opened. The femoral head was removed with a corkscrew, making sure to protect the TFL on its exit. This was measured on the back table to determing the starting reamer size. Portions of the rectus obscuring visualization were minimally elevated off the superior acetabulum. An anterior retractor was placed over the anterior wall between capsule and labrum and attached to the Gripper retraction system. A posterior retractor was placed similarly. This provided excellent visualization. The contents of the cotyloid fossa were removed with electrocautery and the labrum was removed with a knife. There was a notable floor osteophyte. There was significant chondromalacia of the superior acetabulum. Acetabular reaming began with a 49mm reamer. This first reaming was directed anterior to posterior and medial to get down to the true floor. This was inspec tara and reamed until the true floor was reached. The anterior retractor was then released and entry and exit was provided by traction on the capsular flaps. I then reamed sequentially up to a 54mm reamer where good fit was obtained. The larger reamers were oriented based on anatomical reference of the anterior and lateral [place] to ensure proper abduction and anteversion. Positioning and size was confirmed with the fluoroscopy. A 54mm Depuy [place]vue acetabular component was selected. The acetabulum was reamed around the periphery with the selected acetabular size to prevent a rim fit. The deep tissues were irrigated. The acetabular component was then impacted in a position of about 40-45 degrees of abduction and 15-20 degrees of anteversion, using the patient?s anatomy as the ultimate landmark. Fluoroscopy was used to confirm this. There was excellent healthcare insurance sales agent of the acetabular component and the inserting handle was removed. The acetabular liner, Depuy [id number] polyethylene liner, was inserted and lined up with the tines of the acetabular component. There was no soft tissue interposition. The liner was then impacted into position and confirmed to be well-seated. A portion of the sandra-articular cocktail was then injected around the acetabulum into the capsule and periosteum. This cocktail consisted of 123mg of Ropivacaine, 0.25mg of Epinephrine, 0.04mg of Clonidine, and 15mg of Ketorolac, diluted to 50cc. Traction was released from the femur. The leg was rotated to 120 degrees. Any remaining medial capsule was released until the lesser trochanter was easily pa lpable. A Conley retractor was placed medially. The lateral capsule was further released into the shoulder to allow access to the greater trochanter. A Conley retractor was placed over the greater trochanter which allowed the trochanter to flip in front of the capsule for excellent exposure. The leg was brought down into maximal extension and 20 degrees of adduction while ensuring there was no impingement on the acetabulum. Any remnant capsule within the trochanter was released. Piriformis and obturator externis were identified and protected. There was excellent access to the proximal femur. The lateral neck remnant was removed with a rongeur. A blunt canal probe was used to identify the canal and trajectory for later broaching. A box osteotome initiated the broach course. A small curved rasp and a curved curette were used to work laterally. Broaching then began with a starter Actis reaming broach. This was inserted manually around the trochanter and into the canal before mallet blows. The broach was seated to a few millimeters below the cut level based on the neck cut and the preoperative template. Sequential broaching was continued with the Markitcise pneumatic broac martin device until a tight fit was obtained with good rotational control of the femur. A trial high offset neck was inserted along with a +1.5 trial head. The leg was brought out of extension and adduction and then reduced with traction and internal rotation. The leg was stable anteriorly in a position of 30 degrees of extension and 90 degrees of external rotation. Fluoroscopy was used to ensure there was no fracture and the stem was seated well. Leg lengths were checked with an AP pelvis and pelvic reference points. KeyOwner navigation system was used to confirm appropriate positioning and leg length and offset. Once content with the desired offset and leg lengths, the leg was brought back into extension, external rotation and adduction. The periosteum and surrounding tissue was injected with remaining portion of the sandra-articular cocktail. The proximal femur was irrigated as well as the deep tissues. The Depuy Actis High Offset Collared stem, size 6, was then manually inserted into the proximal femur making sure to control rotation. It was then malleted into position with light blows, giving breaks to allow bone expansion and decrease risk of fracture. The selected Depuy Altrx Ceramic Head, size 36+1.5mm, was then placed onto the clean and dry trunnion and secured with impaction onto the tapered fit. The leg was brought back out of extension and adduction and reduced with traction and internal rotation. Stability was confirmed with no shuck at 90 degrees of external rotation and 30 degrees of extension. No impingement through range of motion arc. Final x-ray images were obtained with fluoroscopy to confirm adequate positioning and no intraoperative fracture. The deep tissues were thoroughly irrigated with Irrisept chlorhexadine solution. The capsule was then reapproximated with the previously placed Ethibond sutures. The TFL fascia was finally closed with a No. 2 Stratafix, barbed suture. Deep tissues were then reapproximated with 0 Vicryl and a running 2-0 Vicryl. The skin was closed with a running 4-0 Monocryl in a subcuticular fashion. This was reinforced with skin glue. A Mepilex silver dressing was applied. At the end of the case, all counts were correct. Patrick was transferred to the hospital bed without difficulty and suffering no apparent complication. He has a good prognosis. Physical therapy will start today and without restrictions, weight-bearing as tolerated. Aspirin 81mg BID will be used for DVT prophylaxis. Date of Procedure: 04/27/25
[2025-04-27] MEDS: TRANEXAMIC ACID/SOD. CHL. 1,000 MG/100 ML BAG 600 MG IVPB ×2 (07:47→09:07)
--- NOTE | 2025-04-27 08:53 | DI.RAD_ITS ---
Exam(s) XR HIP RT IN OR EXAM: XR HIP RT IN OR CLINICAL HISTORY: Osteoarthritis of hips, bilateral. TECHNIQUE: 2D and realtime digital imaging was performed. COMPARISON: CR XR PELVIS AP from 04/19/2025 FINDINGS: Hard copy images show placement of a right hip prosthesis. The alignment appears satisfactory. Please see procedure note for details. Fluoro time: 28.6seconds RADIATION DOSE DELIVERED: Kar=3.38 mGy
[2025-04-27] MEDS: fentaNYL 100 MCG/2 ML VIAL IVP (10:54)
--- NOTE | 2025-04-27 11:09 | W.ANESPOSTOP ---
Postoperative Evaluation Date, Time and Location Date Performed: 04/27/25 Time Performed: 11:09 Patient Location: PACU Vital Signs Most Recent Imported Vital Signs: Most Recent Vital Signs Temp Pulse Resp BP Pulse Ox 36.0 C L 54 L 19 123/74 92 04/27/25 10:54 04/27/25 11:01 04/27/25 11:01 04/27/25 11:01 04/27/25 11:01 Pain Score Most Recent Pain Score: Most Recent Pain Score Pain Level 5 04/27/25 10:54 Assessment Mental Status: Awake (Alert & Oriented to Patient Baseline) Airway and Respiratory Function: Patent airway with normal (patient baseline) respiratory exam Cardiovascular Function: Hemodynamically Stable Hydration Status: Adequately Hydrated Nausea & Vomiting: No Nausea or Vomiting Pain: Pain is tolerable per patient Peripheral Nerve Block: Patient did not receive a nerve block
[2025-04-27] MEDS: Tranexamic Acid 650 MG TAB 1300 MG PO (11:57)
--- NOTE | 2025-04-27 12:43 | IN_ITS ---
PT Notes Visit Reasons: Bilateral hip DJD Physical Therapy Day Surgery Initial Evaluation Date: 04/27/25 Referring Doctor: Daija Lerner NP PT Orders: PT CONSULT s/p ortho surgery Precautions: fall, standard Patient Profile/Admitting Diagnosis: Patrick is an independent 69 year old male with bilat hip OA, now s/p bilat ADRIENNE post op day #0. Social History/Home Situation: Patrick resides with his in a private home with 3STE. They have family supports, with 6 adult children. He typically ambula rachel independently at baseline. Equipment Owned/DME: none Subjective: Patrick reports ongoing numbness in buttocks and legs. Has burning pain in lateral hips when weight bearing. Pain well managed at rest. Objective: General Observation: Resting in bed with no lines. Mental Status: A&O x 3. His is present and supportive throughout session. Pain: as above ROM: Right Upper Extremity: WFL Left Upper Extremity: WFL Right Lower Extremity: AROM allows hip flexion to 80*. Demonstrates neutral foot positioning in weight bearing. Left Lower Extremity: AROM allows hip flexion to 80*. Demonstrates neutral foot positioning in weight bearing. Strength: Right Upper Extremity: WFL Left Upper Extremity: WFL Right Lower Extremity: Quads 3/5 or greater. Able to pump ankles and wiggle toes . Left Lower Extremity: Quads 3/5 or greater. Able to pump ankles and wiggle toes. Sensation: intact to light touch. Reports ability to feel contact with the floor, but demonstrates ataxia as noted below. Bed Mobility/Transfers: Supine to sit : supervision Sit to stand : supervision with cues for hand placement Stand to sit : supervision with cues for technique Gait: Ambulates 15'x2 with FWW and min A. On first trial, demonstrates scissoring gait and minor LOB requiring min A for recovery. Cued for gait mechanics, and demonstrates improved comfort and mechanics on second attempt. Held on stair management at that time, with plan to return as his sensation improves. Balance: Static Sitting: normal Dynamic Sitting: good Static Standing: fair Dynamic Standing: poor Special Tests: Mobility Limitations Standardized Measure [facility] AM-PAC 6 clicks Basic Mobility Inpatient Short Form: 20 Raw Score: 20 CMS Score: 36% impairment Informed Consent/Education: Patient instructed in purpose of PT consult. Packet containing [] exercise protocol has been given to patient. Education and training on initial set of exercises that can be done at home have been completed with patient. Treatment: Initial Evaluation (75925) Therapeutic Exercises (26276e7): instruction in post-surgical exercises as follows: Anti-embolic exercises hourly (ankle pumps, quad sets, glute sets) heel slides 10 reps, 3x/day LAQ 10 reps, 3x/day Assessment: Patient presents with clinical signs and symptoms consistent with current/admitting diagnoses that have resulted to mobility limitations, gait instability, generalized weakness, and impairment of motor control as demonstrated by the following impairment level findings: 1. Decreased strength to bilat LE muscle groups 2. Impaired standing balance 3. Impaired dynamic balance 4. decreased activity tolerance Impairments are contributing to the following functional limitations: 1. Inability to safely ambulate without assistive device 2. Increase completion time for mobility ADL performance 3. Increased fall risk Patient is assessed as low complexity based on the following: History: As above, without significant complicating factors Examination: Demonstrable impairment in strength, balance, and mobility level with underlying impairments and functional limitations as documented above Presentation: stable Decision Making: low Goals: N/A. PT evaluation and 1-2 treatment sessions only for functional mobility training using recommended AD and for HEP instruction. Plan of Care/Treatment Plan: N/A. PT evaluation and 1-2 treatment session only for functional mobility training using recommended AD and for HEP instruction. DISCHARGE RECOMMENDATIONS: Home with FWW TREATMENT CODE/TIME: 3099-6912 Thank you for the opportunity to participate in the care of this patient. Please sign an return this page within 30 days if you agree with the above POC. Thank you! Physician Signature Date [facility] PFSH All Active Problems (Updated 04/27/25 @ 08:53 by Rudy Pierre RN) History of bilateral total hip arthroplasty (Acute 04/27/25) Elevated PSA (Acute) Bilateral inguinal hernia (BIH) (Acute) BPH w urinary obs/LUTS (Acute) Jaw pain (Acute) Family history of prostate cancer (Acute) Left hydrocele (Acute 08/21/16) Spermatocele (Acute 08/30/15) Ureteral stone (Acute 08/30/15) Medical History (Updated 04/27/25 @ 08:53 by Rudy Pierre, SWETHA) Lyme disease Melanoma in situ Trigeminal neuralgia Kidney stones Surgical History (Updated 04/27/25 @ 08:53 by Rudy Pierre RN) Hx of bilateral inguinal hernia repair (~12/2024) History of colonoscopy (~2011) polyps Total knee replacement status Per pt. denies-states he crushed my knee but they patched it up
[2025-04-27] MEDS: ceFAZolin 1 GM/50 ML BAG IVPB (13:59)
--- NOTE | 2025-04-27 16:17 | PT.INTREAT ---
PT Notes Visit Reasons: Bilateral hip DJD Physical Therapy Treatment Note [facility] Date: 04/27/2025 PRECAUTIONS: WBAT BLE anterior approach SUBJECTIVE: Patient reports he has more sensation in BLE and burning sensation greater in left anterior thigh than in right. OBJECTIVE: Patient presented seated in recline with ice to bilateral hips, present ? PAIN: 4/10 ? TRANSFERS? Sit-stand: Supervision with cues for hand placement to push up? Stand-sit: Supervision with cues for hand placement to reach back ? Chair-chair: SBA with FWW Provided skilled cues and instruction on performance and technique throughout. Gait Training ([id number]): Direct one-on-one instruction and skilled instruction in: [X] employing an assistive device [] modified weight-bearing status [X] movement sequencing [X] turning and movement with proper form [X] Provided verbal cues for equipment management and technique [X] Provided instruction in gait pattern [] Patient education regarding pacing and breathing techniques to maximize activity tolerance? GAIT? Assistive Device: FWW ? Weight bearing: As tolerated Assist: SBA ? Distance:?50 feet x 2? Deviation: Reduced step length BLE, forward flexed trunk, increased weightbearing through upper extremities to unweight BLE, foot flat at weight acceptance? STAIRS: 3 4 steps? and 2 6 steps with rails SBA with continuous cues for sequencing step to pattern x 3 trials ? ASSESSMENT:?Patient demonstrated ability to perform functional mobility at supervision/standby assist level. Patient's able to provide appropriate cueing after instruction. PLAN: Anticipate patient discharged to home when medically cleared by MD TREATMENT CODE/TIME: 39680/1447?1505 DISCHARGE RECOMMENDATION: Home with HEP and use of FWW
== END 2025-04-27 16:04 | disposition home or self-care (01) ==
PROVIDERS: PCP Family Medicine; Visit Provider Student in an Organized Health Care Education/Training Program
PROC: 0SR90JZ Replacement of Right Hip Joint with Synthetic Substitute, Open Approach (ICD-10-PCS; CPT 27130; principal; 2025-04-27 07:30)
DX: M16.0 Bilateral primary osteoarthritis of hip (principal)
CPT/HCPCS: 20985; 27130; 36415; 86850; 86900; 86901; 97110; 97116; 97161; 73501; C1776; J0665; J0690; J1100; J2003; J2250; J2371; J2405; J2704; J3010

== ENCOUNTER 2025-05-10 15:43 | Outpatient (CLI) | payer MEDICARE, SELFPAY ==
--- NOTE | 2025-05-10 12:30 | DI.RAD_ITS ---
Exam(s) XR HIP PELVIS ADULT BL EXAM: XR HIP PELVIS ADULT BL CLINICAL HISTORY: 1st post op S/P BILAT THAs. TECHNIQUE: 2D digital imaging was performed. Three images were obtained. AP pelvis and bilateral lateral hips views were obtained. COMPARISON: CR XR HIP PELVIS ADULT BL from 06/04/2024 XA XR HIP LT IN OR from 04/27/2025 XA XR HIP RT IN OR from 04/27/2025 FINDINGS: BONES: There are stable post operative changes of a bilateral total hip arthroplasties present. No fracture or dislocation. JOINTS: The orthopedic hardware is in good position. No evidence of hardware loosening. SOFT TISSUE: Normal. IMPRESSION: Stable bilateral total hip arthroplasties. DATA REPOSITORY: RADIATION DOSE DELIVERED:
== END 2025-05-10 15:44 | disposition home or self-care (01) ==
LOC: DIORS 15:43
PROVIDERS: PCP Family Medicine; Visit Provider Student in an Organized Health Care Education/Training Program
DX: Z47.1 Aftercare following joint replacement surgery (principal); Z96.643 Presence of artificial hip joint, bilateral
CPT/HCPCS: 99024; 73521

== ENCOUNTER → 2025-06-07 13:12 | Outpatient (BNVA) | payer MEDICARE, SELFPAY | PROVIDERS: PCP Family Medicine; Referring Provider Family Medicine; Visit Provider Physician Assistant | DX: Z47.1 Aftercare following joint replacement surgery (principal); Z96.643 Presence of artificial hip joint, bilateral | CPT/HCPCS: 99024 ==

== ENCOUNTER 2025-06-17 11:37 | Emergency (ER) | payer MEDICARE, SELFPAY ==
[2025-06-17 11:40] VITALS: BP 173/90; PULSE 69; RESP 18; TEMP 36.6; O2SAT 94
[2025-06-17 12:22] LABS: Glucose Negative (Negative)
[2025-06-17 12:26] LABS: C & S Indicated? No; RBC 20-50 HPF (0-2); WBC 0-2 HPF (0-5)
--- NOTE | 2025-06-17 12:30 | DI.US_ITS ---
Exam(s) US RENAL EXAM: US RENAL CLINICAL HISTORY: left flank pain, hx of stones. TECHNIQUE: Ya scale imaging and color doppler were used. COMPARISON: CT CT ABDOMEN PELVIS WO from 05/31/2023 MR MR ABDOMEN WO/W from 06/26/2023 CR XR ABDOMEN FLAT PLATE from 06/17/2025 FINDINGS: The liver is enlarged and shows hepatic steatosis. Right kidney: 12.9cm Echogenicity: Normal Hydronephrosis: No Cyst or mass: 14 millimeters cyst noted near the lower pole. Nephrolithiasis: No convincing stones. Left kidney: 14.0cm Echogenicity: Normal Hydronephrosis: Moderate Cyst or mass: No Nephrolithiasis: 9 millimeter stone noted near the lower pole. Smaller stones near noted near the mid pole. Bladder:Normal. Both ureteral jets were visualized Prevoid vol:384 cc Postvoid vol:122 cc Prostate volume 39 cc, enlarged. IMPRESSION: Moderate left hydronephrosis. Stones are noted at the mid and lower pole of the left kidney. Enlarged prostate. Elevated postvoid residual. DATA REPOSITORY:
--- NOTE | 2025-06-17 12:30 | DI.RAD_ITS ---
Exam(s) XR ABDOMEN FLAT PLATE EXAM: 2D digital imaging was performed. CLINICAL HISTORY: left flank pain. COMPARISON: CT CT ABDOMEN PELVIS WO from 05/31/2023 TECHNIQUE: Supine views of the abdomen performed. FINDINGS: BOWEL GAS PATTERN: Nondistended. Normal quantity of stool. CALCIFICATIONS: There is a 7 millimeter calcification noted near the lower pole of the left kidney. There other faintly visualized calcifications at the lower pole. OSSEOUS STRUCTURES: Bilateral hip prostheses. Degenerative changes in the lumbar spine. VISUALIZED LUNG BASES: Clear. SOFT TISSUES: No evidence of organomegaly. IMPRESSION: 1. Nonobstructive bowel gas pattern. 2. Left lower pole renal calculi which were seen on [address]22 CT. DATA REPOSITORY: RADIATION DOSE DELIVERED:
[2025-06-17 13:23] LABS: Abs Immature Grans 0.03 10^3/uL (0.0-0.06); HCT 41.1 % (40.0-50.0); HGB 13.0 g/dL (13.5-17.5); Immature Grans % 0.3 %; MCH 26.7 pg (27.0-33.0); MCHC 31.6 % (32.0-36.0); MCV 85 fL (80-95); MPV 10.1 fL (8.0-11.0); Platelet Count 360 10^3/uL (130-400); RBC 4.86 10^6/uL (4.36-5.78); RDW 14.5 % (11.8-14.1); RDW-SD 44.6 fL; WBC 10.21 10^3/uL (4.4-10.8)
[2025-06-17] MEDS: Normal Saline 1,000 ML 1000 ML IV (13:25)
[2025-06-17] MEDS: Ondansetron 4 MG/2 ML VIAL IVP (13:25)
[2025-06-17 13:53] LABS: ALT 38 U/L (16-63); AST 21 U/L (15-37); Albumin 4.0 g/dL (3.4-5.0); Alkaline Phosphatase 127 U/L (46-116); Anion Gap 7.8 mmol/L (3-11); BUN 19 mg/dL (7-18); Bilirubin, Total 1.1 mg/dL (0.2-1.0); CO2 28.2 mmol/L (21.0-32.0); Calcium 9.0 mg/dL (8.5-10.1); Chloride 104 mmol/L (98-107); Estimated GFR 81.98 (mL/min/1.73m2); Glucose 113 mg/dL (74-106); Lipase 19 U/L (<78); Potassium 4.2 mmol/L (3.5-5.1); Sodium 140 mmol/L (136-145); Total Protein 7.6 g/dL (6.4-8.2)
--- NOTE | 2025-06-17 15:11 | W.ED.GENAD ---
Discharge Plan Disposition Patient Disposition: Home Condition: Stable Discharge Details Clinical Impression: Ureterolithiasis, Tinea cruris Primary Care Provider: Juan Sneed ED Provider: Berenice Zuñiga Home Meds and New Rx's Prescriptions: New miconazole nitrate 2 % cream 1 applic topical BID 21 Days Qty: 42.5 1RF oxycodone 5 mg tablet 5 mg PO Q8H PRNQty: 10 0RF tamsulosin [Flomax] 0.4 mg capsule 0.4 mg PO DAILY Qty: 7 0RF ondansetron HCl 4 mg tablet 4 mg PO Q8H PRN PRNQty: 10 0RF Continued magnesium 100 mg tablet 100 mg PO BID cholecalciferol (vitamin D3) 125 mcg (5,000 unit) capsule 125 mcg PO DAILY omega 3-opv-gzo-fish oil [Fish Oil] 300-1,000 mg capsule 1 cap PO DAILY multiphase detox 2 tab PO DIRECTED Rx Instructions: 2 pills 30 minutes before breakfast and supper Naltrex 1.5 mg capsule 1.5 mg PO HS acetaminophen 500 mg tablet 1,000 mg PO Q8H PRN Qty: 90 0RF Rx Instructions: Take two tablets up to every 8 hours as needed for pain Discharge Instructions Instructions: Fungal Skin Rash (DC), Kidney Stone, Adult ED Additional Instructions: Please follow-up with Dr. Silva Strain your urine Take the Flomax, Motrin 400 mg every 8 hours with food Tylenol for breakthrough pain Use the oxycodone sparingly this medication can be addictive and can make you constipated Make sure you do not operate your vehicle for 8 hours after taking this medication Should he develop fever, chills, worsening pain or nausea please return for reassessment I written you for Zuri, this is a medication for nausea Referrals: Juan Sneed MD [Primary Care Provider, Medicine] Pritesh Silva MD [ [facility] STAFF PHYSICIAN, Urology] Discharge Data Discharge Date/Time-TO BE ENTERED AT DEPARTURE: 06/17/25 16:09 HPI General Date/Time Provider Initiated Documentation: 06/17/25 12:27. HPI Narrative: This 69-year-old male with history of renal stones inguinal hernias presents with report of left flank pain intermittently. History of kidney stones in the past has had several in the past year which have resolved without intervention. States this episode was slightly more painful requiring him to take an oxycodone at 3 AM. Denies any fever or chills. States has had some intermittent blood in his urine. Passing urine without difficulty. Also reports a rash to his groin for the past several weeks. Attempted [id number] medications including antifungals without relief Related Data Home Medications ?Medication ?Instructions ?Recorded ?Confirmed cholecalciferol (vitamin D3) 125 125 mcg PO DAILY 12/21/24 06/17/25 mcg (5,000 unit) capsule magnesium 100 mg tablet 100 mg PO BID 12/21/24 06/17/25 multiphase detox 2 tab PO DIRECTED 12/21/24 06/17/25 naltrexone 1.5 mg capsule (Naltrex) 1.5 mg PO HS 12/21/24 06/17/25 omega 9-lxt-yaf-fish oil 300 1 cap PO DAILY 12/21/24 06/17/25 mg-1,000 mg capsule (Fish Oil) acetaminophen 500 mg tablet 1,000 mg (2 x 500 mg) PO Q8H PRN 04/27/25 06/17/25 pain #90 tabs miconazole nitrate 2 % topical 1 applic topical BID 21 days #42.5 06/17/25 cream grams ondansetron HCl 4 mg tablet 4 mg PO Q8H PRN PRN #10 tabs 06/17/25 oxycodone 5 mg tablet 5 mg PO Q8H PRN #10 tabs 06/17/25 tamsulosin 0.4 mg capsule (Flomax) 0.4 mg PO DAILY #7 caps 06/17/25 Previous Rx's ?Medication ?Instructions ?Recorded acetaminophen 500 mg tablet 1,000 mg (2 x 500 mg) PO Q8H PRN 04/27/25 pain #90 tabs miconazole nitrate 2 % topical 1 applic topical BID 21 days #42.5 06/17/25 cream grams ondansetron HCl 4 mg tablet 4 mg PO Q8H PRN PRN #10 tabs 06/17/25 oxycodone 5 mg tablet 5 mg PO Q8H PRN #10 tabs 06/17/25 tamsulosin 0.4 mg capsule (Flomax) 0.4 mg PO DAILY #7 caps 06/17/25 Allergies Allergy/AdvReac Type Severity Reaction Status Date / Time Milk Containing Products Allergy Nausea Verified 06/17/25 13:30 (Dairy) General Stated Complaint: FlankPain JAVIER: 3 Exam Narrative Exam Narrative: Alert and oriented 69-year-old male no acute distress mild left flank tenderness no ecchymosis cardiac rate rhythm regular, macerated well-demarcated rash to groin nontender Course Vital Signs Vital signs: Vital Signs Temperature 36.6 C 06/17/25 11:40 Pulse 69 06/17/25 11:40 Respiratory Rate 18 06/17/25 11:40 Blood Pressure 173/90 H 06/17/25 11:40 Pulse Oximetry 94 06/17/25 11:40 Temperature 36.6 C 06/17/25 11:40 Temperature Source Tympanic 06/17/25 11:40 Pulse 69 06/17/25 11:40 Respiratory Rate 18 06/17/25 11:40 Blood Pressure 173/90 H 06/17/25 11:40 Blood Pressure Position Sitting 06/17/25 11:40 Pulse Oximetry 94 06/17/25 11:40 Oxygen Delivery Method Room Air 06/17/25 11:40 Oxygen Flow Rate 0 06/17/25 11:40 Pain Level 5 06/17/25 11:40 Lab/Test Results Lab/Test Results: Laboratory Tests Range/Units 06/17/25 06/17/25 12:16 13:13 WBC (4.4-10.8) 10^3/uL 10.21 RBC (4.36-5.78) 10^6/uL 4.86 Hgb (13.5-17.5) g/dL 13.0 L Hct (40.0-50.0) % 41.1 MCV (80-95) fL 85 MCH (27.0-33.0) pg 26.7 L MCHC (32.0-36.0) % 31.6 L RDW (11.8-14.1) % 14.5 H Plt Count (130-400) 10^3/uL 360 MPV (8.0-11.0) fL 10.1 Immature Gran % % 0.3 Neutrophils % % 85.0 Lymphocytes % % 8.2 Monocytes % % 6.2 Eosinophils % % 0.0 Basophils % % 0.3 Nucleated RBC % (0.0-0.3) % 0.0 Absolute Neutrophils (1.2-6.7) 10^3/uL 8.68 H Absolute Lymphocytes (1.2-3.4) 10^3/uL 0.84 L Absolute Monocytes (0.1-0.8) 10^3/uL 0.63 Absolute Eosinophils (0.0-0.7) 10^3/uL 0.00 Absolute Basophils (0.0-0.2) 10^3/uL 0.03 Sodium (136-145) mmol/L 140 Potassium (3.5-5.1) mmol/L 4.2 Chloride (98-107) mmol/L 104 Carbon Dioxide (21.0-32.0) mmol/L 28.2 Anion Gap (3-11) mmol/L 7.8 BUN (7-18) mg/dL 19 H Creatinine (0.70-1.30) mg/dL 1.0 Est GFR (CKD-EPI 2020) (mL/min/1.73m2) 81.98 Glucose (74-106) mg/dL 113 H Calcium (8.5-10.1) mg/dL 9.0 Total Bilirubin (0.2-1.0) mg/dL 1.1 H AST (15-37) U/L 21 ALT (16-63) U/L 38 Alkaline Phosphatase (46-116) U/L 127 H Total Protein (6.4-8.2) g/dL 7.6 Albumin (3.4-5.0) g/dL 4.0 Lipase (<78) U/L 19 Urine Color (Yellow) Yellow Urine Clarity (Clear) Clear Urine pH (5-8) 6.5 Ur Specific [place] (1.005-1.025) 1.025 Urine Protein (Neg-Trace) mg/dL Negative Urine Ketones (Negative) mg/dL 15 H Urine Blood (Negative) Large H Urine Nitrite (Negative) Negative Urine Bilirubin (Negative) Negative Urine Urobilinogen (Up to 0.2) mg/dL 0.2 Ur Leukocyte Esterase (Negative) Negative Urine RBC (0-2) HPF 20-50 H Urine WBC (0-5) HPF 0-2 Ur Epithelial Cells (Negative) HPF Rare Urine Crystals (Negative) HPF Negative Urine Bacteria (Negative) HPF Negative Urine Casts (Negative) LPF Negative Urine Mucus (Negative) Trace Ur Culture Indicated? No Urine Glucose (Negative) mg/dL Negative Medical Decision Making Results: 7 mm stone located on abdominal flatplate from at either proximal ureter or lower pole of kidney, urinalysis with blood but no evidence of secondary infection CBC and CMP without significant acute abnormality Assessment and plan: Patient with moderate hydronephrosis and stones on KUB. Will be referred to urology, placed on Flomax, and encouraged to return should develop fever, chills, or with any new or worsening complaints. Will give a small amount of oxycodone for home, Flomax, antiemetics. I think at this point patient is quite stable for discharge home. He is given the threshold to return should he have new or worsening complaints he will be supplied with a strainer. I did consider other pathologies including AAA, diverticulitis however patient has a history of kidney stones and his exam is consistent with the same with moderate hydronephrosis visualized on renal ultrasound. I did review prior CT abdomen and pelvis from 2022 which also displayed a kidney stone without evidence of obvious aneurysm PFSH All Active Problems (Updated 06/17/25 @ 15:53 by RIOS Osborne) Ureterolithiasis (Acute) Tinea cruris (Acute) History of bilateral total hip arthroplasty (Acute 04/27/25) Elevated PSA (Acute) Bilateral inguinal hernia (BIH) (Acute) BPH w urinary obs/LUTS (Acute) Jaw pain (Acute) Family history of prostate cancer (Acute) Left hydrocele (Acute 08/21/16) Spermatocele (Acute 08/30/15) Ureteral stone (Acute 08/30/15) Medical History Lyme disease Melanoma in situ Trigeminal neuralgia Kidney stones Surgical History Hx of bilateral inguinal hernia repair (~12/2024) History of colonoscopy (~2011) polyps Total knee replacement status Per pt. denies-states he crushed my knee but they patched it up Family History Father Prostate cancer CHF (congestive heart failure) Bladder cancer Sister Fibroid tumor Social History Smoking/Tobacco Use Status: Never Smoking risk assessment performed?: Yes Alcohol Intake: never Drug use: Never Substance use type: does not use Housing: house Do you feel safe at home: Yes Do you feel safe in your relationship?: Yes Additional Social history: EMILY
[2025-06-17 15:21] VITALS: BP 167/92; PULSE 65; RESP 18; O2SAT 96
== END 2025-06-17 16:09 | disposition home or self-care (01) ==
PROVIDERS: Emergency Provider Physician Assistant; PCP Family Medicine
DX: N20.1 Calculus of ureter (principal); B35.6 Tinea cruris
CPT/HCPCS: 36415; 76770; 80053; 83690; 96361; 96374; 99284; 74018; 81003; 81015; 85025; J2405

== ENCOUNTER → 2025-06-21 14:24 | Outpatient (BNVA) | payer MEDICARE, SELFPAY | PROVIDERS: PCP Family Medicine; Referring Provider Family Medicine; Visit Provider Urology | DX: N20.0 Calculus of kidney (principal); N13.30 Unspecified hydronephrosis | CPT/HCPCS: 99214 ==

== ENCOUNTER 2025-07-05 07:12 | Day surgery (SDC) | payer MEDICARE, SELFPAY ==
[2025-07-05] VITALS (19 sets, daily range): BP systolic 99–162; BP diastolic 58–87; PULSE 53–75; RESP 13–23; TEMP 36–36.6; O2SAT 91–99; BMI 30.5
[2025-07-05] MEDS: GENTAMICIN 120 MG in Normal Saline 100 ML 206 MG IVPB (07:53)
--- NOTE | 2025-07-05 08:08 | W.ANESPRE ---
General Info Date of Service Date Performed: 07/05/25 Height: 5 ft 8 in Weight: 91.2 kg Body Mass Index (BMI): 30.5 Surgical Procedure: Operation Date: 07/05/25 09:10 Proposed Procedure Side Surgeon p Cystoscopy/Laser/Retrograde/Ureteroscopy/Possible Stent Left Pritesh Silva MD Meds Allergies and Home Medications Allergies Allergy/AdvReac Type Severity Reaction Status Date / Time Milk Containing Products Allergy Nausea Verified 07/05/25 07:32 (Dairy) Home Medication ?Medication ?Instructions ?Recorded cholecalciferol (vitamin D3) 125 125 mcg PO DAILY 12/21/24 mcg (5,000 unit) capsule magnesium 100 mg tablet 100 mg PO BID 12/21/24 multiphase detox 2 tab PO DIRECTED 12/21/24 naltrexone 1.5 mg capsule (Naltrex) 1.5 mg PO HS 12/21/24 omega 9-xot-mkg-fish oil 300 1 cap PO DAILY 12/21/24 mg-1,000 mg capsule (Fish Oil) acetaminophen 500 mg tablet 1,000 mg (2 x 500 mg) PO Q8H PRN 04/27/25 pain #90 tabs miconazole nitrate 2 % topical 1 applic topical BID 21 days #42.5 06/17/25 cream grams ondansetron HCl 4 mg tablet 4 mg PO Q8H PRN PRN #10 tabs 06/17/25 oxycodone 5 mg tablet 5 mg PO Q8H PRN #10 tabs 06/17/25 Current Visit Medications: Current Medications Generic Name Dose Route Start Last Admin Trade Name Freq PRN Reason Stop Dose Admin Cefazolin Sodium/Dextrose 2 gm in 50 mls @ 100 mls/hr 07/05/25 06:00 Ancef Duplex IVPB 08/01/25 23:59 PREOP ANT Gentamicin Sulfate 120 mg/ 103 mls @ 206 mls/hr 07/05/25 06:00 07/05/25 07:53 Sodium Chloride IVPB 07/05/25 23:59 206 mls/hr PREOP ANT Administration Ringer's Solution 1,000 mls @ 80 mls/hr 07/05/25 07:15 IV 08/04/25 07:14 INFUSION ANT IV Miscellaneous Supplies 1 each 07/05/25 07:15 Iv Access IV 08/04/25 07:14 DIRECTED ANT Sodium Chloride 0 ml 07/05/25 07:14 Normal Saline Flush 10 Ml Syr IVP 08/04/25 07:13 PRN PRN Sodium Chloride 0 ml 07/05/25 08:30 Normal Saline Flush 10 Ml Syr IVP 08/04/25 08:29 BID ANT Sodium Chloride 0 ml 07/05/25 07:14 Normal Saline 10 Ml Vial IJ 08/04/25 07:13 DIRECTED PRN PFSH Active Problems Active Problems: Problem Status Onset Code Ureterolithiasis Acute N20.1 Tinea cruris Acute B35.6 History of bilateral total hip arthroplasty Acute 04/27/25 Z96.643 Elevated PSA Acute R97.20 Bilateral inguinal hernia (BIH) Acute K40.20 BPH w urinary obs/LUTS Acute N40.1, N13.8 Jaw pain Acute R68.84 Family history of prostate cancer Acute Z80.42 Left hydrocele Acute 08/21/16 N43.3 Spermatocele Acute 08/30/15 N43.40 Ureteral stone Acute 08/30/15 N20.1 Medical History Medical History Lyme disease Melanoma in situ Trigeminal neuralgia Kidney stones Surgical History Surgical History Hx of bilateral hip replacements Hx of bilateral inguinal hernia repair (~12/2024) History of colonoscopy (~2011) polyps Total knee replacement status Per pt. denies-states he crushed my knee but they patched it up Tobacco Smoking/Tobacco Use Status: Never Passive smoking exposure: No Alcohol Alcohol Intake: never Substance Use Substance use: Never Substance use type: does not use Vital Signs and Lab Results Vital Signs Most Recent Vital Signs in EMR: Most Recent Vital Signs Temp Pulse Resp BP Pulse Ox 36.6 C 75 22 162/87 H 97 07/05/25 07:30 07/05/25 07:30 07/05/25 07:30 07/05/25 07:30 07/05/25 07:30 Lab Results Complete Blood Count: WBC, (4.4-10.8) 10.21 10^3/uL 06/17/25, 13:13 RBC, (4.36-5.78) 4.86 10^6/uL 06/17/25, 13:13 Hgb, (13.5-17.5) 13.0 g/dL L 06/17/25, 13:13 Hct, (40.0-50.0) 41.1 % 06/17/25, 13:13 Plt Count, (130-400) 360 10^3/uL 06/17/25, 13:13 Complete Metabolic Panel: Sodium, (136-145) 140 mmol/L 06/17/25, 13:13 Potassium, (3.5-5.1) 4.2 mmol/L 06/17/25, 13:13 Chloride, (98-107) 104 mmol/L 06/17/25, 13:13 Carbon Dioxide, (21.0-32.0) 28.2 mmol/L 06/17/25, 13:13 BUN, (7-18) 19 mg/dL H 06/17/25, 13:13 Creatinine, (0.70-1.30) 1.0 mg/dL 06/17/25, 13:13 Est GFR (CKD-EPI 2020), (mL/min/1.73m2) 81.98 06/17/25, 13:13 Calcium, (8.5-10.1) 9.0 mg/dL 06/17/25, 13:13 Albumin, (3.4-5.0) 4.0 g/dL 06/17/25, 13:13 Glucose, (74-106) 113 mg/dL H 06/17/25, 13:13 Liver Function Panel: ALT, (16-63) 38 U/L 06/17/25, 13:13 AST, (15-37) 21 U/L 06/17/25, 13:13 Pancreas Panel: Lipase, (<78) 19 U/L 06/17/25, 13:13 Imaging and Studies Imaging and Studies Study information below may be from another EMR and interpreted by another provider. Please see original notes in EMR for more complete details. EKG Summary: 06/25/21 Conclusion Sinus bradycardia...rate< 60 Anesthesia Assessment and Plan Anesthesia History Personal History: No History of Anesthesia Complications Family History: No Family History of Anesthesia Complications Exercise Tolerance Exercise Tolerance: Metabolic Equivalents>4 Pertinent Negatives Pertinent Negatives: No Symptoms of GERD, No Major Pulmonary Symptoms or Complaints and No History of CVA/TIA Cardiac & Pulmonary Exam Cardiac Exam: Heart Murmur Present (Patient reports diagnosed over a year ago at his [place] PCP. Reviewed Preoperative Total Hip PCP H&P from this year and he is noted as regular rate and rhythm with normal heart sounds. ) Pulmonary Exam: Clear Bilateral Breath Sounds Cardiac and Pulmonary Comment:: No Chest Pain/SOB, walks 2-3 miles every day and does not have any issues with walking up a flight of stairs Implantable Cardiac Device Does patient have a Pacemaker or an ICD?: No Airway Exam Known Difficult Airway: No Mallampati Class: 3 Mouth Opening: Narrow (< 3cm) Thyromental Distance: Greater than 3 cm Neck Range of Motion: Limited ROM Neck Circumference: Normal Teeth Condition: Normal Dentition Tooth Numbering:  1. Several missing upper molars per patient 2. at least one missing lower molar per patient Airway Comments: Denies loose or broken teeth. Reports crown placed 10 days ago. ASA Classification ASA Score: ASA 2 Emergency Case?: No NPO Status NPO Status: NPO Clears >2 hours, Solids >8 hours Anesthesia Plan Resuscitation Status: Full Code Anesthesia Technique: General Anesthesia Airway Planned: Endotracheal Tube Monitors Used: Standard Monitors and SedLine Preoperative Comments:: Discussed Murmur and lack of ECHO with patient and spouse. Per patient and spouse murmur was noted over a year ago at PCP visit and they were told it was fine. I auscultated today and noted a prominent S1 murmur, loudest over left sternal border. I discussed this and recent dental work with Sugar Alfred CRNA and Tomás Silva MD and due to length of time since initial diagnosis, lack of C/P and SOB, good and unchanged functional status, the patient can proceed today. I have requested the patient get an ECHO prior to any further elective procedures.
[2025-07-05] MEDS: Lactated Ringers 1,000 ML 80 ML IV (08:30)
--- NOTE | 2025-07-05 08:57 | W.PM.HP.N ---
Date of service: 07/05/25 Time of Service: 08:57 Assessment and Plan Assessment and plan (1) Kidney stones: Assessment and plan: We are not certain if a ureteral stone is present at this time, but we do know he has a large kidney stone. We will plan a cystoscopy and retrograde pyelogram to assess the ureter. We will address any ureteral stone that might be present. As long as visibility remains clear, we will also address his large left kidney stone. History of Present Illness History of Present Illness Chief Complaint: left kidney stones Narrative: This is a 69-year-old gentleman who has a past history of kidney stones. Previously, his stones have been bilateral. He has required left ureteroscopy over 10 years ago. His stones at that time were calcium based. He was seen in our office about 2 years ago. We found two left ureteral stones at that time. Follow-up MRI showed resolution of the hydronephrosis, but we are not certain if he passed his 2 stones or not. About 3 weeks ago, he noted some mild left flank pain. The pain became severe and he presented to the emergency department. He had a renal ultrasound that showed left hydronephrosis. He had a KUB and there was a 9 mm stone in the left kidney. No imaging of the ureter was accomplished. Since his time in the emergency department, his pain has been more mild. Last night, however, the pain became severe enough that he required a single dose of oral narcotic. He had gross hematuria when he initially presented but not since then. He has had no fever or chills. He has not passed any stones as far as he is aware Review of Systems Narrative: No fevers or chills No vision change or dysphasia No diabetes or thyroid dysfunction No shortness of breath, cough or hemoptysis No chest pain or palpitations No nausea, vomiting, hepatitis, ulcers, jaundice No seizures, strokes or peripheral neuropathy No bleeding disorders or anemia No gout PFSH All Active Problems Ureterolithiasis (Acute) Tinea cruris (Acute) History of bilateral total hip arthroplasty (Acute 04/27/25) Elevated PSA (Acute) Bilateral inguinal hernia (BIH) (Acute) BPH w urinary obs/LUTS (Acute) Jaw pain (Acute) Family history of prostate cancer (Acute) Left hydrocele (Acute 08/21/16) Spermatocele (Acute 08/30/15) Ureteral stone (Acute 08/30/15) Medical History Lyme disease Melanoma in situ Trigeminal neuralgia Kidney stones Surgical History Hx of bilateral hip replacements Hx of bilateral inguinal hernia repair (~12/2024) History of colonoscopy (~2011) polyps Total knee replacement status Per pt. denies-states he crushed my knee but they patched it up Family History Father Prostate cancer CHF (congestive heart failure) Bladder cancer Sister Fibroid tumor Social History Smoking/Tobacco Use Status: Never Smoking risk assessment performed?: Yes Alcohol Intake: never Drug use: Never Substance use type: does not use Housing: house Do you feel safe at home: Yes Do you feel safe in your relationship?: Yes Additional Social history: UTAP Meds Allergies and Home Medications Allergies Allergy/AdvReac Type Severity Reaction Status Date / Time Milk Containing Products Allergy Nausea Verified 07/05/25 07:32 (Dairy) Home Medications ?Medication ?Instructions ?Recorded ?Confirmed ?Type cholecalciferol (vitamin D3) 125 125 mcg PO DAILY 12/21/24 07/05/25 History mcg (5,000 unit) capsule magnesium 100 mg tablet 100 mg PO BID 12/21/24 07/05/25 History multiphase detox 2 tab PO DIRECTED 12/21/24 07/05/25 History naltrexone 1.5 mg capsule (Naltrex) 1.5 mg PO HS 12/21/24 07/05/25 History omega 3-wts-far-fish oil 300 1 cap PO DAILY 12/21/24 07/05/25 History mg-1,000 mg capsule (Fish Oil) acetaminophen 500 mg tablet 1,000 mg (2 x 500 mg) PO Q8H PRN 04/27/25 07/05/25 Rx pain #90 tabs miconazole nitrate 2 % topical 1 applic topical BID 21 days #42.5 06/17/25 07/05/25 Rx cream grams ondansetron HCl 4 mg tablet 4 mg PO Q8H PRN PRN #10 tabs 06/17/25 07/05/25 Rx oxycodone 5 mg tablet 5 mg PO Q8H PRN #10 tabs 06/17/25 07/05/25 Rx Exam Const General: cooperative Neck Neck: supple Resp Effort & Inspection: normal respiratory effort Auscultation: clear to auscultation bilaterally Cardio Rate: regular rate Rhythm: regular rhythm Heart Sounds: murmur GI Palpation: soft and no masses Neuro General: patient alert, patient awake and patient oriented x3 Results Last Vital Signs Temp 36.6 C 07/05/25 07:30 Pulse 75 07/05/25 07:30 Resp 22 07/05/25 07:30 BP 162/87 H 07/05/25 07:30 Pulse Ox 97 07/05/25 07:30 Time Spent Time spent with Patient: <40 minutes Time was spent: other
[2025-07-05] MEDS: ceFAZolin 2 GM/50 ML BAG IVPB (09:32)
[2025-07-05] MEDS: Lidocaine 2% Jelly 11 ML SYR (10:24)
[2025-07-05] MEDS: Omnipaque 300 MG/ML 50 ML BTL (10:30)
--- NOTE | 2025-07-05 10:50 | DI.RAD_ITS ---
Exam(s) XR RETROGRADE IN OR EXAM: XR RETROGRADE IN OR CLINICAL HISTORY: Kidney stones, Hydronephrosis TECHNIQUE: 2D and realtime digital imaging was performed. CONTRAST MATERIAL: Refer to procedure report. COMPARISON: CR XR HIP PELVIS ADULT BL from 05/10/2025 CR XR ABDOMEN FLAT PLATE from 06/17/2025 FINDINGS: Fluoroscopy was provided for Dr. Silva during the performance of a retrograde evaluation of the renal collecting system. Please refer to the procedure report for complete details. Ka,r=11.6 mGy IMPRESSION: RADIATION DOSE DELIVERED: 0.0 0.0 0
--- NOTE | 2025-07-05 10:56 | W.PM.DSUDISC ---
Date of service: 07/05/25 Discharge Plan Disposition Patient Disposition: Home Condition: Stable Discharge Details Reason For Visit: ureteral and renal stones Attending Provider: Pritesh Silva Primary Care Provider: Juan Sneed Recommendations for Follow Up Recommended tests to be ordered by follow up provider: echocardiogram for cardiac murmur Home Meds and New Rx's Prescriptions: No Action magnesium 100 mg tablet 100 mg PO BID cholecalciferol (vitamin D3) 125 mcg (5,000 unit) capsule 125 mcg PO DAILY omega 4-gox-qzk-fish oil [Fish Oil] 300-1,000 mg capsule 1 cap PO DAILY multiphase detox 2 tab PO DIRECTED Rx Instructions: 2 pills 30 minutes before breakfast and supper Naltrex 1.5 mg capsule 1.5 mg PO HS acetaminophen 500 mg tablet 1,000 mg PO Q8H PRN Qty: 90 0RF Rx Instructions: Take two tablets up to every 8 hours as needed for pain miconazole nitrate 2 % cream 1 applic topical BID 21 Days Qty: 42.5 1RF oxycodone 5 mg tablet 5 mg PO Q8H PRNQty: 10 0RF ondansetron HCl 4 mg tablet 4 mg PO Q8H PRN PRNQty: 10 0RF Discharge Instructions Additional Instructions: There is no need to strain your urine There is a stent in your left ureter. As long as the stent is in place, it is not unusual to see blood in the urine, to urinate more frequently than usual or to have some discomfort when you urinate My office will contact you to arrange for a repeat cystoscopy, stent removal and repeat ureteroscopy to make sure all stone pieces are gone (I think they are all gone but the was a blood clot where I blasted the stone, so I couldn't be certain) Activity:: Activity as Tolerated Shower/Bathe:: 24 hours Diet:: As Tolerated Discharge Orders Discharge Orders: Discharge Order (Routine); Ordered 07/05/25 Ordered By: Pritesh Silva DS: Diagnosis Discharge Diagnosis (1) Kidney stones:
--- NOTE | 2025-07-05 11:04 | ROE_ITS ---
Operative Note Operative Note PRE-OP DIAGNOSIS: Left kidney stone POST-OP DIAGNOSIS: same left ureteral stone PROCEDURE: cystoscopy, left retrograde pyelogram, left ureteral dilation, left ureteroscopy with extraction of ureteral stone, holmium laser lithotripsy of left kidney stone, extraction of left kidney stone fragments, insert left ureteral stent SURGEON: Pritesh Silva ANESTHESIA TYPE: Local By Surgeon and General LMA/ETT Refer to Anesthesia Record ESTIMATED BLOOD LOSS: 5 PATHOLOGY: other (stone fragments for chemical analysis) COMPLICATIONS: None Patient was transported to: PACU Patient's condition: stable Implants: 4.8 Kosovan by 22 to 30 cm left ureteral stent Indications: This is a 69-year-old gentleman who does have a history of kidney stones. He required a ureteroscopic treatment about 10 years ago. He recently presented to the emergency department with left renal colic. On ultrasound, he was found to have hydronephrosis. There was also a stone in the left kidney. His left ureter was not imaged while he was in the emergency department. As his pain persisted, he presents now for stone manipulation Findings: left distal ureteral stone left renal stone Procedure Description: The patient was given IV antibiotics and brought to the operating room on 07/05/2025. After successful induction of general anesthesia, he was placed in the dorsal lithotomy position. His genitalia was prepped and draped. 2% Xylocaine jelly was instilled into the urethra. A 22 Kosovan rigid cystoscope was passed through the urethra into the bladder. The urethra and bladder were inspected using a 30 degree lens. The pendulous, bulbar and membranous urethra all appeared normal with no strictures. The prostatic urethra showed lateral lobe enlargement and a very mild median lobe. The bladder neck was then entered the bladder mucosa was inspected. Both ureteral orifices were identified. No blood was seen coming from either side. No edema was found around the orifices. The left orifice was cannulated with a 5 Kosovan access catheter and a retrograde pyelogram was obtained by injecting Omnipaque through the access catheter under fluoroscopic guidance. The filling defect was identified in the left distal ureter and there was ureteral dilation above the level of the filling defect. A guidewire was advanced through the lumen of the access catheter and the catheter was removed. I then dilated the left distal ureter using a UroMax balloon. I passed a dual-lumen catheter over the wire and advanced a second wire through the dual-lumen catheter. We chose one of the wires as a working wire and the other is a safety wire. I then passed a ureteral access sheath over the working wire and passed a flexible ureteroscope through the lumen of the ureteral access sheath. I was able to visualize the ureteral stone, grasped it and a ZeroTip stone basket and removed the stone in its entirety. The stone was sent to the laboratory for chemical analysis. I then passed the flexible cystoscope up the remainder of the ureter into the kidney. A stone could be seen at the mouth of one of the midpole calyces. There was mucosal edema around the stone. I was able to treat the stone with a 272 ?m holmium laser fiber. We used a combination of dusting and fragmentation settings. Multiple stone fragments were grasped in the ZeroTip stone basket and removed. The stone fragments were also sent to the laboratory for chemical analysis. At the completion of the procedure, I did not see any large stone burden remaining, but there was a blood clot in the calyx the previously house the stone. We elected to place a ureteral stent and make plans for a return visit to the operating room to ensure all stone fragments have been addressed. Impacted a 4.8 Kosovan variable length stent and advanced it over the safety wire. The proximal end of the stent was curled in the renal pelvis and the distal end was curled in the bladder. The positioning of the stent was confirmed both fluoroscopically and cystoscopically. The patient tolerated the procedure well with no complications. Date of Procedure: 07/05/25
[2025-07-05] MEDS: Phenazopyridine 200 MG TAB PO (12:09)
--- NOTE | 2025-07-05 13:26 | W.ANESPOSTOP ---
Postoperative Evaluation Date, Time and Location Date Performed: 07/05/25 Time Performed: 13:26 Patient Location: Day Surgery Unit Vital Signs Most Recent Imported Vital Signs: Most Recent Vital Signs Temp Pulse Resp BP Pulse Ox 36.3 C L 53 L 16 110/83 97 07/05/25 12:29 07/05/25 12:29 07/05/25 12:29 07/05/25 12:29 07/05/25 12:29 Pain Score Most Recent Pain Score: Most Recent Pain Score Pain Level 0 07/05/25 12:29 Assessment Mental Status: Other Airway and Respiratory Function: Other Cardiovascular Function: Other Hydration Status: Adequately Hydrated (per RN) Nausea & Vomiting: No Nausea or Vomiting (per RN) Pain: Other Peripheral Nerve Block: Patient did not receive a nerve block Postoperative Comments:: Patient was not seen in [facility] by anesthesia provider prior to discharge. Bedside RN stated patient doing well, vitals per record.
== END 2025-07-05 12:55 | disposition home or self-care (01) ==
PROVIDERS: PCP Family Medicine; Visit Provider Urology
PROC: (CPT 52356; principal; 2025-07-05 09:00)
DX: N13.2 Hydronephrosis with renal and ureteral calculous obstruction (principal)
CPT/HCPCS: 52356; 74420; 82365; J0131; J0690; J1100; J1580; J1885; J2003; J2250; J2371; J2405; J2704; Q9967

== ENCOUNTER 2025-07-19 06:06 | Day surgery (SDC) | payer MEDICARE, SELFPAY ==
[2025-07-19] VITALS (20 sets, daily range): BP systolic 128–152; BP diastolic 74–96; PULSE 49–73; RESP 0–19; TEMP 36.2–36.7; O2SAT 86–99; BMI 30.2
--- NOTE | 2025-07-19 06:28 | W.ANESPRE ---
General Info Date of Service Date Performed: 07/19/25 Height: 5 ft 8 in Weight: 90 kg Body Mass Index (BMI): 30.2 Surgical Procedure: Operation Date: 07/19/25 07:40 Proposed Procedure Side Surgeon p Cystoscopy/Retrograde/Ureteroscopy/ Stent Removal Left Pritesh Silva MD Meds Allergies and Home Medications Allergies Allergy/AdvReac Type Severity Reaction Status Date / Time Milk Containing Products Allergy Nausea Verified 07/19/25 06:18 (Dairy) Home Medication Medication Instructions Recorded cholecalciferol (vitamin D3) 125 125 mcg PO DAILY 12/21/24 mcg (5,000 unit) capsule magnesium 100 mg tablet 100 mg PO BID 12/21/24 multiphase detox 2 tab PO DIRECTED 12/21/24 naltrexone 1.5 mg capsule (Naltrex) 1.5 mg PO HS 12/21/24 omega 8-vac-myl-fish oil 300 1 cap PO DAILY 12/21/24 mg-1,000 mg capsule (Fish Oil) acetaminophen 500 mg tablet 1,000 mg (2 x 500 mg) PO Q8H PRN 04/27/25 pain #90 tabs miconazole nitrate 2 % topical 1 applic topical BID 21 days #42.5 06/17/25 cream grams ondansetron HCl 4 mg tablet 4 mg PO Q8H PRN PRN #10 tabs 06/17/25 oxycodone 5 mg tablet 5 mg PO Q8H PRN #10 tabs 06/17/25 Current Visit Medications: Current Medications Generic Name Dose Route Start Last Admin Trade Name Freq PRN Reason Stop Dose Admin Ringer's Solution 1,000 mls @ 80 mls/hr 07/19/25 06:00 IV 07/19/25 23:59 INFUSION ANT Cefazolin Sodium/Dextrose 2 gm in 50 mls @ 100 mls/hr 07/19/25 06:00 Ancef Duplex IVPB 07/19/25 23:59 PREOP ANT Gentamicin Sulfate 120 mg/ 103 mls @ 206 mls/hr 07/19/25 06:00 Sodium Chloride IVPB 07/19/25 23:59 PREOP ANT IV Miscellaneous Supplies 1 each 07/19/25 06:00 Iv Access IV 07/19/25 23:59 DIRECTED ANT Sodium Chloride 0 ml 07/19/25 06:00 Normal Saline Flush 10 Ml Syr IV 07/19/25 23:59 PRN PRN Sodium Chloride 0 ml 07/19/25 06:00 Normal Saline 10 Ml Vial IJ 07/19/25 23:59 DIRECTED PRN Sterile Water 0 ml 07/19/25 06:00 Water,Injection,Sterile 10 Ml Vial IJ 07/19/25 23:59 DIRECTED PRN PFSH Active Problems Active Problems: Problem Status Onset Code History of bilateral total hip arthroplasty Acute 04/27/25 Z96.643 Elevated PSA Acute R97.20 Bilateral inguinal hernia (BIH) Acute K40.20 BPH w urinary obs/LUTS Acute N40.1, N13.8 Jaw pain Acute R68.84 Family history of prostate cancer Acute Z80.42 Left hydrocele Acute 08/21/16 N43.3 Spermatocele Acute 08/30/15 N43.40 Ureteral stone Acute 08/30/15 N20.1 Medical History Medical History Lyme disease Melanoma in situ Trigeminal neuralgia Kidney stones Surgical History Surgical History Hx of bilateral hip replacements Hx of bilateral inguinal hernia repair (~12/2024) History of colonoscopy (~2011) polyps Total knee replacement status Per pt. denies-states he crushed my knee but they patched it up Tobacco Smoking/Tobacco Use Status: Never Passive smoking exposure: No Alcohol Alcohol Intake: never Substance Use Substance use: Never Substance use type: does not use Vital Signs and Lab Results Vital Signs Most Recent Vital Signs in EMR: Most Recent Vital Signs Temp Pulse Resp BP Pulse Ox 36.7 C 70 18 152/96 H 97 07/19/25 06:15 07/19/25 06:15 07/19/25 06:15 07/19/25 06:15 07/19/25 06:15 Imaging and Studies Imaging and Studies Study information below may be from another EMR and interpreted by another provider. Please see original notes in EMR for more complete details. EKG Summary: 06/25/21 Conclusion Sinus bradycardia...rate< 60 Anesthesia Assessment and Plan Anesthesia History Personal History: No History of Anesthesia Complications Family History: No Family History of Anesthesia Complications Exercise Tolerance Exercise Tolerance: Metabolic Equivalents>4 Cardiac & Pulmonary Exam Cardiac Exam: Normal S1/S2 Heart Sounds and Heart Murmur Present Pulmonary Exam: Clear Bilateral Breath Sounds Implantable Cardiac Device Does patient have a Pacemaker or an ICD?: No Airway Exam Known Difficult Airway: No Mallampati Class: 3 Mouth Opening: Narrow (< 3cm) Thyromental Distance: Greater than 3 cm Neck Range of Motion: Limited ROM Neck Circumference: Normal Teeth Condition: Normal Dentition Airway Comments: Denies loose or broken teeth. Reports crown placed 10 days ago. ASA Classification ASA Score: ASA 2 Emergency Case?: No NPO Status NPO Status: NPO Clears >2 hours, Solids >8 hours Anesthesia Plan Resuscitation Status: Full Code Anesthesia Technique: General Anesthesia Airway Planned: Natural Airway Monitors Used: Standard Monitors
--- NOTE | 2025-07-19 06:45 | DI.RAD_ITS ---
Exam(s) XR RETROGRADE IN OR EXAM: XR RETROGRADE IN OR CLINICAL HISTORY: Kidney stones Left TECHNIQUE: 2D and realtime digital imaging was performed. CONTRAST MATERIAL: Refer to procedure report. COMPARISON: CR XR ABDOMEN FLAT PLATE from 06/17/2025 FINDINGS: Fluoroscopy was provided for Dr. Silva during the performance of a retrograde evaluation of the renal collecting system. Please refer to the procedure report for complete details. Ka,r=6.5 mGy IMPRESSION: RADIATION DOSE DELIVERED: 0.0 0.0 0
--- NOTE | 2025-07-19 06:57 | W.PM.HP.N ---
Date of service: 07/19/25 Time of Service: 06:57 Assessment and Plan Assessment and plan (1) Ureteral stone: Status: Acute (2) Kidney stones: Assessment and plan: We will remove his ureteral stent and pass the flexible ureteroscope back up to the kidney to ensure that all stone fragments have been addressed. History of Present Illness History of Present Illness Chief Complaint: Left kidney stone Narrative: This is a 69-year-old gentleman who previously presented with left renal colic. He underwent ureteroscopy and we extracted a left ureteral stone. We also treated a left kidney stone with holmium laser lithotripsy. A stent was placed following the procedure. He comes in now for stent removal and repeat ureteroscopy to make sure all stone fragments have been addressed. Since his stent was placed, he has had blood in the urine but no significant flank pain, fever or chills. Review of Systems Narrative: No fevers or chills No vision change or dysphasia No diabetes or thyroid dysfunction No shortness of breath, cough or hemoptysis No chest pain or palpitations No nausea, vomiting, hepatitis, ulcers, jaundice No seizures, strokes or peripheral neuropathy No bleeding disorders or anemia No gout PFSH All Active Problems History of bilateral total hip arthroplasty (Acute 04/27/25) Elevated PSA (Acute) Bilateral inguinal hernia (BIH) (Acute) BPH w urinary obs/LUTS (Acute) Jaw pain (Acute) Family history of prostate cancer (Acute) Left hydrocele (Acute 08/21/16) Spermatocele (Acute 08/30/15) Ureteral stone (Acute 08/30/15) Medical History Lyme disease Melanoma in situ Trigeminal neuralgia Kidney stones Surgical History Hx of bilateral hip replacements Hx of bilateral inguinal hernia repair (~12/2024) History of colonoscopy (~2011) polyps Total knee replacement status Per pt. denies-states he crushed my knee but they patched it up Family History Father Prostate cancer CHF (congestive heart failure) Bladder cancer Sister Fibroid tumor Social History Smoking/Tobacco Use Status: Never Smoking risk assessment performed?: Yes Alcohol Intake: never Drug use: Never Substance use type: does not use Housing: house Do you feel safe at home: Yes Do you feel safe in your relationship?: Yes Additional Social history: UTAP Meds Allergies and Home Medications Allergies Allergy/AdvReac Type Severity Reaction Status Date / Time Milk Containing Products Allergy Nausea Verified 07/19/25 06:18 (Dairy) Home Medications Medication Instructions Recorded Confirmed Type cholecalciferol (vitamin D3) 125 125 mcg PO DAILY 12/21/24 07/19/25 History mcg (5,000 unit) capsule magnesium 100 mg tablet 100 mg PO BID 12/21/24 07/19/25 History multiphase detox 2 tab PO DIRECTED 12/21/24 07/19/25 History naltrexone 1.5 mg capsule (Naltrex) 1.5 mg PO HS 12/21/24 07/19/25 History omega 3-odz-cln-fish oil 300 1 cap PO DAILY 12/21/24 07/19/25 History mg-1,000 mg capsule (Fish Oil) acetaminophen 500 mg tablet 1,000 mg (2 x 500 mg) PO Q8H PRN 04/27/25 07/19/25 Rx pain #90 tabs miconazole nitrate 2 % topical 1 applic topical BID 21 days #42.5 06/17/25 07/19/25 Rx cream grams ondansetron HCl 4 mg tablet 4 mg PO Q8H PRN PRN #10 tabs 06/17/25 07/19/25 Rx oxycodone 5 mg tablet 5 mg PO Q8H PRN #10 tabs 06/17/25 07/19/25 Rx Exam Const General: cooperative and comfortable Neck Neck: supple Resp Effort & Inspection: normal respiratory effort Auscultation: clear to auscultation bilaterally Cardio Rate: regular rate Rhythm: regular rhythm Heart Sounds: murmur GI Palpation: soft and no masses Neuro General: patient alert, patient awake and patient oriented x3 Results Last Vital Signs Temp 36.7 C 07/19/25 06:15 Pulse 70 07/19/25 06:15 Resp 18 07/19/25 06:15 BP 152/96 H 07/19/25 06:15 Pulse Ox 97 11/03/25 06:15 Time Spent Time spent with Patient: <40 minutes Time was spent: other
[2025-07-19] MEDS: GENTAMICIN 120 MG in Normal Saline 100 ML 206 MG IVPB (07:16)
[2025-07-19] MEDS: Lactated Ringers 1,000 ML 80 ML IV (07:17)
[2025-07-19] MEDS: ceFAZolin 2 GM/50 ML BAG IVPB (07:26)
[2025-07-19] MEDS: Lidocaine 2% Jelly 11 ML SYR (07:48)
[2025-07-19] MEDS: Omnipaque 300 MG/ML 50 ML BTL (07:58)
--- NOTE | 2025-07-19 08:08 | W.PM.DSUDISC ---
Date of service: 07/19/25 Discharge Plan Disposition Patient Disposition: Home Condition: Stable Discharge Details Reason For Visit: remove stent Attending Provider: Pritesh Silva Primary Care Provider: Juan Sneed Home Meds and New Rx's Prescriptions: No Action magnesium 100 mg tablet 100 mg PO BID cholecalciferol (vitamin D3) 125 mcg (5,000 unit) capsule 125 mcg PO DAILY omega 7-txd-koy-fish oil [Fish Oil] 300-1,000 mg capsule 1 cap PO DAILY multiphase detox 2 tab PO DIRECTED Rx Instructions: 2 pills 30 minutes before breakfast and supper Naltrex 1.5 mg capsule 1.5 mg PO HS acetaminophen 500 mg tablet 1,000 mg PO Q8H PRN Qty: 90 0RF Rx Instructions: Take two tablets up to every 8 hours as needed for pain miconazole nitrate 2 % cream 1 applic topical BID 21 Days Qty: 42.5 1RF oxycodone 5 mg tablet 5 mg PO Q8H PRNQty: 10 0RF ondansetron HCl 4 mg tablet 4 mg PO Q8H PRN PRNQty: 10 0RF Discharge Instructions Additional Instructions: There is no need to strain your urine I would expect the blood in the urine to clear within a week Followup appointment in 6 to 8 weeks with a renal ultrasound prior to your visit Stand Alone Forms: Portal Information Activity:: Activity as Tolerated Shower/Bathe:: 24 hours Diet:: As Tolerated Discharge Orders Discharge Orders: Discharge Order (Routine); Ordered 07/19/25 Ordered By: Pritesh Silva Other Ambulatory Orders: US renal (Routine) Timeframe: 8 Weeks Facility: [facility] - Location: DIAGNOSTIC IMAGING Ordered By: Pritesh Silva DS: Diagnosis Discharge Diagnosis (1) Ureteral stone: Status: Acute (2) Kidney stones:
--- NOTE | 2025-07-19 08:15 | W.PM.OP ---
Operative Note Operative Note PRE-OP DIAGNOSIS: Left ureteral stone POST-OP DIAGNOSIS: same PROCEDURE: cystoscopy, remove left ureteral stent, left retrograde pyelogram, left flexible ureteroscopy SURGEON: Pritesh Silva ANESTHESIA TYPE: Local By Surgeon and General:No Airway Refer to Anesthesia Record ESTIMATED BLOOD LOSS: 5 PATHOLOGY: none sent COMPLICATIONS: None Patient was transported to: PACU Patient's condition: stable Implants: none Indications: This is a 69-year-old gentleman who was previously seen with renal colic. He was found to have an obstructing left ureteral stone along with a second stone up in the kidney. The ureteral stone was extracted. The kidney stone was treated with holmium laser lithotripsy. We placed a ureteral stent and he returns now for stent removal and repeat ureteroscopy to ensure all stone fragments have been addressed Findings: no large stone burden Procedure Description: The patient was given IV antibiotics and brought to the operating room on 07/19/2025. After successful induction of general anesthesia, he was placed in the dorsal lithotomy position. His genitalia was prepped and draped. 2% Xylocaine jelly was instilled into the urethra. A 22 Wallisian rigid cystoscope was passed through the urethra into the bladder. The urethra and bladder were inspected with the 30 degree lens. The pendulous, bulbar and membranous urethra appeared normal with no strictures. The prostatic urethra showed lateral lobe enlargement but no significant median lobe. The bladder neck was entered and the stent could be seen protruding from the left ureteral orifice. There was a large amount of edema surrounding the orifice. The stent was grasped and brought out to the level of the urethral meatus. A guidewire was passed through the lumen of the stent and the stent was removed in its entirety. I then passed a 5 Wallisian access catheter over the wire and positioned the catheter in the distal ureter. A retrograde pyelogram was then performed to outline the calyces. I reinserted the wire and removed the access catheter. I passed a dual-lumen catheter over the wire and positioned a second wire. We chose one of the wires as a working wire and the other is a safety wire. I passed a ureteral access sheath over the working wire and passed a disposable flexible ureteroscope through the lumen of the access sheath up to the kidney. Each of the calyces were inspected using the deflection of the scope. No residual stones were seen. The scope was withdrawn down the ureter and no stones were seen within the ureteral lumen. The safety wire was then removed. The patient tolerated the procedure well with no complications. Date of Procedure: 07/19/25
[2025-07-19] MEDS: fentaNYL 100 MCG/2 ML VIAL IVP (08:29)
--- NOTE | 2025-07-19 09:42 | W.ANESPOSTOP ---
Postoperative Evaluation Date, Time and Location Date Performed: 07/19/25 Time Performed: 09:42 Patient Location: Day Surgery Unit Vital Signs Most Recent Imported Vital Signs: Most Recent Vital Signs Temp Pulse Resp BP Pulse Ox 36.2 C L 55 L 18 130/80 96 07/19/25 08:49 07/19/25 08:49 07/19/25 08:49 07/19/25 08:49 07/19/25 08:49 Pain Score Most Recent Pain Score: Most Recent Pain Score Pain Level 0 07/19/25 08:49 Assessment Mental Status: Awake (Alert & Oriented to Patient Baseline) Airway and Respiratory Function: Patent airway with normal (patient baseline) respiratory exam Cardiovascular Function: Hemodynamically Stable Hydration Status: Adequately Hydrated Nausea & Vomiting: No Nausea or Vomiting Pain: Pt. Denies Any Pain Peripheral Nerve Block: Patient did not receive a nerve block
== END 2025-07-19 09:50 | disposition home or self-care (01) ==
PROVIDERS: PCP Family Medicine; Visit Provider Urology
PROC: (CPT 52005; principal; 2025-07-19 07:30)
DX: N20.1 Calculus of ureter (principal)
CPT/HCPCS: 52005; C1747; 74420; J0690; J1100; J1580; J1885; J2405; J2704; J3010; Q9967

== ENCOUNTER → 2025-08-10 01:40 | Outpatient (CLI) | payer MEDICARE, SELFPAY ==
--- NOTE | 2025-08-10 | DI.US_ITS ---
APPROVED REPORT EXAM: Comprehensive 2D, Doppler, and color-flow Echocardiogram Patient Location: Out-Patient Speech And Language Tutor: Maren Nelson RDCS (AE) Indications: New cardiac murmur Other Information Study Quality: Adequate Conclusion Incidental finding [id number] hypoechoic liver mass seen. Normal left ventricular wall thickness and chamber size. Ejection fraction is 60%. Wall motion is normal Normal right ventricular size and function Mildly dilated left atrium. Normal right atrial size There is no structural or hemodynamically significant valvular disease Wall motion Left Ventricle The left ventricle is normal size. The left ventricular systolic function is normal. The left ventricular ejection fraction is within the normal range. There is normal left ventricular wall thickness. There is normal LV segmental wall motion. There is no ventricular septal defect visualized. LVEF is 60%. Right Ventricle The right ventricle is normal size. The right ventricular systolic function is normal. Atria Left atrium is mildly dilated. The right atrium size is normal. Aortic Valve The aortic valve is normal in structure. Aortic valve is trileaflet. There is no aortic valvular stenosis. No aortic regurgitation is present. Mitral Valve The mitral valve is normal in structure. No evidence of mitral valve stenosis. Trace mitral regurgitation. Tricuspid Valve The tricuspid valve is normal in structure. There is no tricuspid valve stenosis. Trace tricuspid regurgitation. Unable to assess PA pressure. Pulmonic Valve The pulmonary valve is normal in structure. There is no pulmonic valvular stenosis. There is no pulmonic valvular regurgitation. Great Vessels The aortic root is normal in size. The ascending aorta is normal in size. Aortic arch is normal in caliber. IVC is normal in size and collapses >50% with inspiration. Pericardium There is no pericardial effusion. 2D Dimensions IVSD d PLAX 0.92 cm M: 0.6-1.2 Ao Root d 3.28 cm M: 3.1 - 3.7 LVPW d PLAX 0.92 cm M: 0.6 - 1.2 Ao Asc Diam d 3.03 cm M: 2.6 - 3.4 LVID d PLAX 4.45 cm M: 4.2 - 5.8 LVDs 3.03 cm M: 2.5 - 4.0 LV EF Teichholz 60.2 % FS 31.92 % LV EDV (Teich) 89.9 mL LV ESV (Teich) 35.8 mL M-Mode TAPSE 2.36 cm (M/F) >1.7 Auto EF LV EDV A4C 147.1 mL LV EDV A2C 115.1 mL LV EDV BP 132.8 mL LV ESV A4C 58.4 mL LV ESV A2C 46.2 mL LV ESV BP 52.3 mL LVEF(%) A4C 60.3 % LVEF(%) A2C 59.9 % LVEF(%) BP 60.6 % LV SV A4C 88.7 ml LV SV A2C 68.9 ml LV SV BP 80.5 ml LV CO A4C 6.1 L/min LV CO A2C 3.9 L/min LV CO BP 5.0 L/min HR A4C 69.23 BPM HR A2C 57.04 BPM LV EDV Index (BP) LA Volume LA Length A4C 5.1 cm LA Length A2C 5.1 cm LA Area A4C s 21.34 cm2 LA Area A2C s 22.09 cm2 LA Vol A4C A-L 76.06 mL LA Vol A2C A-L 80.71 mL LA Vol Biplane A-L 78.7 mL LA Vol/BSA A4C A-L LA Vol/BSA A2C A-L LA Vol/BSA BP A-L 38.6 mL/m2 LA Vol A4C MOD 69.2 mL LA Vol A2C MOD 74.2 mL LA Vol BP MOD 72.0 mL RA Volume RA Area A4C 16.6 cm2 RA ESV A4C (A-L) 36.9mL RA Vol/BSA A4C A-L RA Length A4C 6.3 cm RA ESV A4C (MOD) 34.8mL LV Diastology MV E' medial 0.062 (>0.07 m/s) MV E Vmax 0.70 (0.4-1.3 m/s) MV E/E' MED 11.39 (<14) MV A Vmax 0.90 (0.4-1.3 m/s) MV E' lateral 0.098 (>0.1 m/s) E/A Ratio 0.8 MV E/E' LAT 7.18 (<14) MV E' Average 0.080 m/s MV E/E'(average) 8.81 Aortic Valve AoV Vmax 1.62 m/s LVOT Vmax 1.34 m/s AoV Peak Grad 10.5 mmHg LVOT Peak Grad 7.2 mmHg AoV Area (Vmax) 2.71 cm2 LVOT VTI 0.299 m AoV VTI 0.340 m LVOT Mean Grad 4.0 mmHg AoV Mean Morgan. 1.03 m/s LVOT SV 97.85 mL AoV Mean Grad 5.0 mmHg LVOT Diam s 2.00 cm AoV Area (VTI) 2.88 cm2 AV Regurg Peak Gr. 10.47 mmHg Velocity Ratio 0.83 Mitral Valve MV DT 213 (160-240 msec) MV Vmax TIPS 0.88 m/s MV Mean Grad 1.0 (<2mmHg) MV VTI 0.253 m Pulmonary Valve PV Vmax 1.56 (0.5-1.5 m/s) RVOT Vmax 0.77 m/s PV Peak Grad 9.7 mmHg RVOT Peak Gr. 2.4 mmHg PV Mean Morgan 0.99 m/s RVOT VTI 0.142 m PV Mean Grad 4.4 mmHg RVOT Mean Gr. 1.5 mmHg Tricuspid Valve RA Pressure 3.00 mmHg TV S' 0.18 m/s
== END ==
LOC: DI 01:40
PROVIDERS: PCP Family Medicine; Visit Provider Family Medicine
DX: R01.1 Cardiac murmur, unspecified (principal); R93.2 Abnormal findings on diagnostic imaging of liver and biliary tract
CPT/HCPCS: 93306

== ENCOUNTER → 2025-09-01 00:02 | Outpatient (CLI) | payer MEDICARE, SELFPAY ==
--- NOTE | 2025-09-01 06:30 | DI.US_ITS ---
Exam(s) US RENAL EXAM: US RENAL CLINICAL HISTORY: ? hydronephrosis after ureteroscopy,calculus of ureter and kidney,n20.0,. TECHNIQUE: Ya scale imaging and color doppler were used. COMPARISON: XA XR RETROGRADE IN OR from 07/19/2025 FINDINGS: Right kidney: cm Echogenicity: Normal Hydronephrosis: No Cyst or mass: 12 millimeter parapelvic cyst. Nephrolithiasis: Question of 2 stones near the upper pole measuring 3 and 5 millimeters versus artifact. Left kidney: cm Echogenicity: Normal Hydronephrosis: No Cyst or mass: Upper pole parapelvic cyst measuring 13 millimeters. Nephrolithiasis: Question of a 3 millimeter upper pole stone. Size lower pole stones measuring 6 and 8 millimeters. Bladder:Normal. Left ureterovesical jet was not visualized. Prevoid vol:153 cc Postvoid vol:70 cc Enlarged prostate, impressing on the base of the bladder with volume of 35 cc. IMPRESSION: No evidence of hydronephrosis although the left ureteral jet was not visualized. Stones are noted at the lower pole of the left kidney. Also question of small stones at the upper poles of both kidneys versus artifact. DATA REPOSITORY:
== END ==
PROVIDERS: PCP Family Medicine; Visit Provider Urology
DX: N20.1 Calculus of ureter (principal); N20.0 Calculus of kidney
CPT/HCPCS: 76770

== ENCOUNTER → 2025-09-06 08:00 | Outpatient (BNVA) | payer MEDICARE, SELFPAY | PROVIDERS: PCP Family Medicine; Referring Provider Family Medicine; Visit Provider Nurse Practitioner Gerontology | DX: N40.1 Benign prostatic hyperplasia with lower urinary tract symptoms (principal); N13.8 Other obstructive and reflux uropathy; R97.20 Elevated prostate specific antigen [PSA]; R35.1 Nocturia; N20.0 Calculus of kidney; Z80.42 Family history of malignant neoplasm of prostate; Z80.52 Family history of malignant neoplasm of bladder | CPT/HCPCS: 99214 ==

== ENCOUNTER 2025-09-06 08:38 | Outpatient (CLI) | payer MEDICARE, SELFPAY ==
[2025-09-06 18:23] LABS: PSA, Diagnostic 9.2 ng/mL (<=4.5)
== END 2025-09-06 08:39 | disposition home or self-care (01) ==
LOC: LBO 08:39
PROVIDERS: PCP Family Medicine; Visit Provider Nurse Practitioner Gerontology
DX: R97.20 Elevated prostate specific antigen [PSA] (principal); N40.1 Benign prostatic hyperplasia with lower urinary tract symptoms; N13.8 Other obstructive and reflux uropathy; Z80.42 Family history of malignant neoplasm of prostate
CPT/HCPCS: 36415; 99214; 84153